=== PATIENT | male | born 1950 | race Caucasian/White ===

== ENCOUNTER 2025-04-22 07:41 | Inpatient (IN) ==
[2025-04-22] MEDS: ONDANSETRON INJ 2 MG/ML 2 ML VIAL IV STA (07:57)
[2025-04-22] MEDS: SODIUM CHLORIDE 0.9% 1,000 ML IV ONE ×2 (07:57→10:23)
[2025-04-22 08:06] LABS: Hematocrit (blood only) 36.6 % (42.0-52.0); Hemoglobin 12.7 g/dl (14.0-18.0); Immature Granulocytes # (auto) 0.03 K/uL (0.01-0.20); Immature Granulocytes % (auto) 0.7 %; Mean Corpuscular Hemoglobin 31.3 pg (25.0-34.0); Mean Corpuscular Volume 90.1 fL (80.0-100.0); Platelet Count 183 K/uL (130-400); RDW Standard Deviation 42.5 fL (36.4-46.3); Red Blood Count 4.06 M/uL (4.70-6.10); White Blood Count 4.40 K/ul (4.8-10.8)
--- NOTE | 2025-04-22 08:11 | Emergency Department Note ---
Impression & Plan Recurrent severe hypoglycemia, MARI (acute kidney injury), Nausea & vomiting, Hyperphosphatemia, Transaminitis, Elevated troponin, Rhabdomyolysis, Elevated CK, Acidosis, Elevated lipase, Acute dehydration ED Provider Note HISTORY OF PRESENT ILLNESS: Patient is a 74-year-old male presenting with hypoglycemia, nausea and abdominal pain. Patient's had called 911 this morning because the patient seemed very confused and was not acting his normal self. On EMS arrival, the patient's blood sugar was found to be 37 mg/dL. He was given D10 and route to the hospital and repeat blood sugar was 137 mg/dL. Patient reports for the last week he has been feeling generally unwell. He states that he has had some cramping throughout his abdomen. He states that he has had multiple episodes of vomiting throughout the week and that he had a few episodes of diarrhea a few days ago. He states that he has not had a fever. Reports feeling nauseous and that "I have not eaten very well because anything to eat or drink tastes weird." He states that "water tastes like mud." He takes metformin twice daily and states he took a dose last night. He denies any chest pain or shortness of breath. Denies any recent sick contact exposures. Denies any dysuria or hematuria. He reports feeling generally unwell on arrival to the emergency department. ROS: as above PHYSICAL EXAM: Constitutional: Patient appears in no acute distress. HENT: Head: Normocephalic and atraumatic. Eyes: EOMI, PERRL Mouth/Throat: Mucous membranes dry. Neck: Trachea midline. Neck supple. Cardiovascular: RRR, No murmurs, rubs or gallops. Intact distal pulses. Pulmonary/Chest: No respiratory distress. Breath sounds clear and equal bilaterally. No wheezes or rales. Abdominal: Abdomen soft, no tenderness, rebound or guarding. Musculoskeletal: No edema, tenderness or deformity noted. Skin: Warm and dry. No rash, erythema, pallor or cyanosis Psychiatric: Appropriate mood and affect for situation. Neurological: Alert and keenly responsive. CN II-XII grossly intact, moving all extremities equally and fully. MDM: - Vitals signs showed hypertension. Fingerstick glucose on arrival was 125 mg/dL. - History obtained via patient. History as above. - Chronic conditions affecting care: HLD; DM-2; CAD; AAA (s/p repair) - Differential diagnoses include, but are not limited to: Acute dehydration; electrolyte abnormality; viral syndrome; bowel obstruction; abnormal medication administration; ACS; pneumonia - Order placed for continuous cardiac monitoring. At this time, monitor showed rate of 96 bpm with normal sinus rhythm, per my interpretation. - External medical records reviewed. Primary care visit note dated 12/14/2024 was reviewed. Patient was seen for 6-month follow-up visit for his chronic medical problems. Per their documentation, he has been taking metformin 1000 mg daily when it is actually written for twice daily. He stopped his glimepiride in October 2024. - EKG image interpreted by myself showed normal sinus rhythm. Rate 70 bpm. QT 408. No acute ischemic changes. - Laboratory workup interpreted by myself showed slight leukopenia (WBC 4.40); anemia (Hgb 12.7); normal PT/INR; normal lactate; normal potassium; MARI (Cr 8.68); hypocalcemia (Ca 7.9); hyperphosphatemia (phos 5.7); transaminitis (AST 272; ALT 423); elevated CK (4909); elevated troponin (26.1); elevated lipase (108) - UA negative for infection - COVID/flu/RSV negative - CT head wo contrast negative for acute pathology - CT abdomen/pelvis wo contrast negative for acute pathology. - Patient given 4 mg IV zofran and 1L NS in ER initially. - VBG shows evidence of acidosis (pH 7.28) - Patient noted to have a significant kidney injury on laboratory workup. He was given a total of 2 L normal saline. Patient did void spontaneously in the emergency department. He was bladder scanned for about 700 cc of urine and his postvoid residual is 0. He does not have profound electrolyte abnormalities to suggest need for CRRT at this time. Patient does have a notable acidosis with a pH of 7.28. However, do feel that this could be repeated by the hospitalist service after patient has been adequately fluid resuscitated in order to monitor for improvement. - Patient had initial glucose of 37 on EMS arrival and his blood sugar did improved after D10 dosing. However, while in the emergency department his glucose did slowly trend down from 125 down to the 60s. Patient has not taken any antihyperglycemic's today. D10 was ordered. - Discussion was had with upper caser about patient's case and need for admission - Hospitalist consulted for admission - Patient admitted to [facility] service for further evaluation and management. I have personally spent 46 minutes of critical care time in the direct management of this patient. This includes bedside care, interpretation of diagnostic studies, and testing, discussion with consultants, patient, and family members, and other required patient management activities. This 46 minutes is in excess of all separately billable procedures. ASSESSMENT AND PLAN: Diagnosis: MARI; nausea and vomiting; recurrent hypoglycemia; hyperphosphatemia; elevated troponin; transaminitis; rhabdomyolysis; elevated CK; acidosis; elevated lipase; acute dehydration Plan: Admit Past Med/Surg History Problem List (Updated 04/22/25 @ 10:51 by Seda Dawkins MD) Acute dehydration (Acute) Elevated lipase (Acute) Acidosis (Acute) Elevated CK (Acute) Rhabdomyolysis (Acute) Elevated troponin (Acute) Transaminitis (Acute) Hyperphosphatemia (Acute) Nausea & vomiting (Acute) MARI (acute kidney injury) (Acute) Recurrent severe hypoglycemia (Acute) Type II diabetes mellitus Abdominal aortic aneurysm Coronary artery disease (Chronic) Dyslipidemia (Acute) Past myocardial infarction (Acute) Surgical History History of cardiac cath Family History Father Coronary heart disease Family/Other Coronary heart disease Diabetes Brother Myocardial infarction Sister Myocardial infarction Denies family history of Colon cancer Ovarian cancer Prostate cancer Breast cancer Social History (Updated 06/18/24 @ 08:53 by NATHEN Cifuentes) Smoking Status: Former smoker Tobacco Type: Cigarettes Age Started Using Tobacco: 16; Age Quit Using Tobacco: 45; packs per day: 1; Cigarettes Per Day: 20; Second Hand Exposure: No; Do You Dip or Chew Tobacco: No; Hx Alcohol Use: No Hx Substance Use: No marital status: Current Living Situation: Spouse current occupational status: employed 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 Feels Safe at Home: Yes Childhood Exposure to Second-Hand Smoke: Yes Diet: low salt caffeine: Yes Dental Care, Regularly: No Physical Activity Frequency: Does not Exercise Seatbelt Use: always Allergies Allergies Allergy/AdvReac Type Severity Reaction Status Date / Time amoxicillin Allergy Unknown UNKNOWN Verified 01/26/25 09:30 clavulanic acid Allergy Unknown UNKNOWN Verified 01/26/25 09:30 Home Meds Home Medications Medication Instructions Recorded Confirmed aspirin 81 mg tablet 81 mg PO DAILY 04/06/19 04/22/25 Previous Rx's Medication Instructions Recorded ezetimibe 10 mg tablet (Zetia) 10 mg PO DAILY #90 tabs 06/20/24 blood sugar diagnostic (OneTouch #100 ea 06/23/24 Ultra Test strips) blood-glucose meter (OneTouch #100 ea 06/23/24 Ultra2 Meter) lancets 30 gauge (OneTouch #100 ea 06/23/24 UltraSoft 2 Lancet) nitroglycerin 0.4 mg sublingual 0.4 mg sublingual Q5M PRN chest 01/28/25 tablet pain #25 tabs rosuvastatin 40 mg tablet 40 mg PO DAILY #100 tabs 02/05/25 lisinopril 10 mg tablet 10 mg PO DAILY #100 tabs 02/15/25 metformin 500 mg tablet 1,000 mg (2 x 500 mg) PO BID #360 03/12/25 tabs metoprolol tartrate 25 mg tablet 25 mg PO BID #180 tabs 04/22/25 Results & Data (ED) Vital Signs Vital Signs - 24 hr 04/22/25 07:49 04/22/25 08:08 04/22/25 08:09 Temperature 36.5 C Temperature Source Oral Pulse Rate 75 71 72 Pulse Rate [Left Finger] Pulse Rhythm Regular Pulse Rhythm [Left Finger] Pulse Strength [Left Finger] Respiratory Rate 20 20 Respiratory Effort / Characteristics Non-Labored Respiratory Depth Normal Respiratory Pattern Regular Blood Pressure 158/85 H Blood Pressure [Right Arm] Blood Pressure Mean 109 Blood Pressure Mean [Right Arm] Blood Pressure Position Lying Blood Pressure Position [Right Arm] Pulse Oximetry 96 95 Oxygen Delivery Method Room Air Room Air Sepsis Recent Fever Within 48 Hours No Sepsis New/Unexplained Change in Mental Status Yes Sepsis Action Taken by Nursing No Action Required 04/22/25 09:51 Temperature Temperature Source Pulse Rate Pulse Rate [Left Finger] 96 H Pulse Rhythm Pulse Rhythm [Left Finger] Regular Pulse Strength [Left Finger] Normal Respiratory Rate 20 Respiratory Effort / Characteristics Non-Labored Spontaneous Respiratory Depth Normal Respiratory Pattern Regular Blood Pressure Blood Pressure [Right Arm] 134/71 Blood Pressure Mean Blood Pressure Mean [Right Arm] 92 Blood Pressure Position Blood Pressure Position [Right Arm] Sitting Pulse Oximetry 96 Oxygen Delivery Method Room Air Sepsis Recent Fever Within 48 Hours Sepsis New/Unexplained Change in Mental Status Sepsis Action Taken by Nursing Laboratory Data 04/22/25 07:54 04/22/25 07:54 Lab Results 04/22/25 04/22/25 04/22/25 Range/Units 07:45 07:54 08:00 WBC 4.40 L (4.8-10.8) K/ul RBC 4.06 L (4.70-6.10) M/uL Hgb 12.7 L (14.0-18.0) g/dl Hct 36.6 L (42.0-52.0) % MCV 90.1 (80.0-100.0) fL MCH 31.3 (25.0-34.0) pg MCHC 34.7 (32.0-36.0) g/dL RDW Std Deviation 42.5 (36.4-46.3) fL RDW Coeff of Ronny 12.7 (11.5-14.5) % Plt Count 183 (130-400) K/uL MPV 9.7 (9.4-12.4) fL Immature Gran % (Auto) 0.7 % Neut % (Auto) 73.4 % Lymph % (Auto) 11.1 % Washburn % (Auto) 13.6 % Eos % (Auto) 0.7 % Baso % (Auto) 0.5 % Neut # (Auto) 3.23 (1.40-6.50) K/uL Lymph # (Auto) 0.49 L (1.20-3.40) K/uL [place] # (Auto) 0.60 H (0.11-0.59) K/uL Eos # (Auto) 0.03 (0.00-0.50) K/uL Baso # (Auto) 0.02 (0.00-0.20) K/uL Immature Gran # (Auto) 0.03 (0.01-0.20) K/uL PT Cancelled INR Cancelled VBG pH (7.36-7.41) VBG pCO2 (38-50) mmHg VBG pO2 mmHg VBG HCO3 mmol/L VBG O2 Saturation % VBG Base Excess mEq/L Sodium 140 (136-145) mmol/L Potassium 4.4 (3.5-5.1) mmol/L Chloride 110 H (98-107) mmol/L Carbon Dioxide 21 (21-32) mmol/L Anion Gap 9 (3-11) BUN 81 H (6-23) mg/dl Creatinine 8.68 H* (0.6-1.4) mg/dl Est Cr Clr Drug Dosing 7.5 ml/min eGFR 5.91 BUN/Creatinine Ratio 9.3 L (10-20) Glucose 132 H (70-99(Fasting)) mg/dl POC Glucose 125 H (70-99) mg/dl Lactate (0.4-2.0) mmol/L Calcium 7.9 L (8.6-10.3) mg/dl Phosphorus (2.5-4.9) mg/dl Magnesium 2.4 (1.7-2.4) mg/dl Total Bilirubin 0.4 (0.2-1.0) mg/dl AST 272 H (13-39) U/L ALT 423 H (7-52) U/L Alkaline Phosphatase 72 (34-104) U/L Total Creatine Kinase 4909 H (30-223) U/L Troponin I High Sens 26.1 H (0-20) pg/ml Total Protein 6.0 (6.0-8.3) gm/dl Albumin 3.2 L (3.4-5.0) gm/dl Globulin 2.8 (2.5-4.0) gm/dl Albumin/Globulin Ratio 1.1 (0.9-2) Lipase 108 H (11-82) U/L Urine Color Urine Appearance (Clear) Urine pH (4.5-7.5) Ur Specific Newton (1.000-1.030) Urine Protein (Negative) Urine Glucose (UA) (Negative) Urine Ketones (Negative) Urine Blood (Negative) Urine Nitrite (Negative) Urine Bilirubin (Negative) Urine Urobilinogen (Negative) Ur Leukocyte Esterase (Negative) Urine WBC (Auto) (0-5) /hpf Urine RBC (Auto) (0-2) /hpf U Hyaline Cast (Auto) (0-2) /lpf U Epithel Cells (Auto) (0-2) /hpf Urine Bacteria (Auto) (None Seen) Urine Comment SARS-CoV-2 (PCR) NEGATIVE (Negative) Influenza Type A (PCR) Negative (Neg) Influenza Type B (PCR) Negative (Neg) RSV (RT-PCR) Negative (Neg) 04/22/25 04/22/25 04/22/25 Range/Units 08:10 08:50 08:55 WBC (4.8-10.8) K/ul RBC (4.70-6.10) M/uL Hgb (14.0-18.0) g/dl Hct (42.0-52.0) % MCV (80.0-100.0) fL MCH (25.0-34.0) pg MCHC (32.0-36.0) g/dL RDW Std Deviation (36.4-46.3) fL RDW Coeff of Ronny (11.5-14.5) % Plt Count (130-400) K/uL MPV (9.4-12.4) fL Immature Gran % (Auto) % Neut % (Auto) % Lymph % (Auto) % [place] % (Auto) % Eos % (Auto) % Baso % (Auto) % Neut # (Auto) (1.40-6.50) K/uL Lymph # (Auto) (1.20-3.40) K/uL [place] # (Auto) (0.11-0.59) K/uL Eos # (Auto) (0.00-0.50) K/uL Baso # (Auto) (0.00-0.20) K/uL Immature Gran # (Auto) (0.01-0.20) K/uL PT 11.4 INR 1.1 VBG pH (7.36-7.41) VBG pCO2 (38-50) mmHg VBG pO2 mmHg VBG HCO3 mmol/L VBG O2 Saturation % VBG Base Excess mEq/L Sodium (136-145) mmol/L Potassium (3.5-5.1) mmol/L Chloride (98-107) mmol/L Carbon Dioxide (21-32) mmol/L Anion Gap (3-11) BUN (6-23) mg/dl Creatinine (0.6-1.4) mg/dl Est Cr Clr Drug Dosing ml/min eGFR BUN/Creatinine Ratio (10-20) Glucose (70-99(Fasting)) mg/dl POC Glucose 99 (70-99) mg/dl Lactate 1.1 (0.4-2.0) mmol/L Calcium (8.6-10.3) mg/dl Phosphorus 5.7 H (2.5-4.9) mg/dl Magnesium (1.7-2.4) mg/dl Total Bilirubin (0.2-1.0) mg/dl AST (13-39) U/L ALT (7-52) U/L Alkaline Phosphatase (34-104) U/L Total Creatine Kinase (30-223) U/L Troponin I High Sens 23.2 H (0-20) pg/ml Total Protein (6.0-8.3) gm/dl Albumin (3.4-5.0) gm/dl Globulin (2.5-4.0) gm/dl Albumin/Globulin Ratio (0.9-2) Lipase (11-82) U/L Urine Color Urine Appearance (Clear) Urine pH (4.5-7.5) Ur Specific Newton (1.000-1.030) Urine Protein (Negative) Urine Glucose (UA) (Negative) Urine Ketones (Negative) Urine Blood (Negative) Urine Nitrite (Negative) Urine Bilirubin (Negative) Urine Urobilinogen (Negative) Ur Leukocyte Esterase (Negative) Urine WBC (Auto) (0-5) /hpf Urine RBC (Auto) (0-2) /hpf U Hyaline Cast (Auto) (0-2) /lpf U Epithel Cells (Auto) (0-2) /hpf Urine Bacteria (Auto) (None Seen) Urine Comment SARS-CoV-2 (PCR) (Negative) Influenza Type A (PCR) (Neg) Influenza Type B (PCR) (Neg) RSV (RT-PCR) (Neg) 04/22/25 04/22/25 04/22/25 Range/Units 09:53 09:58 10:04 WBC (4.8-10.8) K/ul RBC (4.70-6.10) M/uL Hgb (14.0-18.0) g/dl Hct (42.0-52.0) % MCV (80.0-100.0) fL MCH (25.0-34.0) pg MCHC (32.0-36.0) g/dL RDW Std Deviation (36.4-46.3) fL RDW Coeff of Ronny (11.5-14.5) % Plt Count (130-400) K/uL MPV (9.4-12.4) fL Immature Gran % (Auto) % Neut % (Auto) % Lymph % (Auto) % [place] % (Auto) % Eos % (Auto) % Baso % (Auto) % Neut # (Auto) (1.40-6.50) K/uL Lymph # (Auto) (1.20-3.40) K/uL [place] # (Auto) (0.11-0.59) K/uL Eos # (Auto) (0.00-0.50) K/uL Baso # (Auto) (0.00-0.20) K/uL Immature Gran # (Auto) (0.01-0.20) K/uL PT INR VBG pH 7.28 L (7.36-7.41) VBG pCO2 42 (38-50) mmHg VBG pO2 40 mmHg VBG HCO3 20 mmol/L VBG O2 Saturation 70.0 % VBG Base Excess -6.7 mEq/L Sodium (136-145) mmol/L Potassium (3.5-5.1) mmol/L Chloride (98-107) mmol/L Carbon Dioxide (21-32) mmol/L Anion Gap (3-11) BUN (6-23) mg/dl Creatinine (0.6-1.4) mg/dl Est Cr Clr Drug Dosing ml/min eGFR BUN/Creatinine Ratio (10-20) Glucose (70-99(Fasting)) mg/dl POC Glucose 66 L* (70-99) mg/dl Lactate 1.1 (0.4-2.0) mmol/L Calcium (8.6-10.3) mg/dl Phosphorus (2.5-4.9) mg/dl Magnesium (1.7-2.4) mg/dl Total Bilirubin (0.2-1.0) mg/dl AST (13-39) U/L ALT (7-52) U/L Alkaline Phosphatase (34-104) U/L Total Creatine Kinase (30-223) U/L Troponin I High Sens (0-20) pg/ml Total Protein (6.0-8.3) gm/dl Albumin (3.4-5.0) gm/dl Globulin (2.5-4.0) gm/dl Albumin/Globulin Ratio (0.9-2) Lipase (11-82) U/L Urine Color Yellow Urine Appearance Clear (Clear) Urine pH 5.5 (4.5-7.5) Ur Specific Newton 1.008 (1.000-1.030) Urine Protein 1+ H (Negative) Urine Glucose (UA) Negative (Negative) Urine Ketones Negative (Negative) Urine Blood 3+ H (Negative) Urine Nitrite Negative (Negative) Urine Bilirubin Negative (Negative) Urine Urobilinogen Negative (Negative) Ur Leukocyte Esterase Negative (Negative) Urine WBC (Auto) 0-5 (0-5) /hpf Urine RBC (Auto) 0-2 (0-2) /hpf U Hyaline Cast (Auto) 3-5 H (0-2) /lpf U Epithel Cells (Auto) 0-2 (0-2) /hpf Urine Bacteria (Auto) None Seen (None Seen) Urine Comment SARS-CoV-2 (PCR) (Negative) Influenza Type A (PCR) (Neg) Influenza Type B (PCR) (Neg) RSV (RT-PCR) (Neg) Administered Medications Dextrose (D10w) 1,000 mls @ 75 mls/hr IV .[id number] Stop: 04/25/25 09:59 Last Admin: 04/22/25 10:23 Dose: 75 mls/hr Documented By: lawrence Discontinued Medications Sodium Chloride (Nss) 1,000 mls @ 999 mls/hr IV .Q1H1M ONE Stop: 04/22/25 08:53 Last Admin: 04/22/25 07:57 Dose: 999 mls/hr Documented By: OLEGARIO Sodium Chloride (Nss) 1,000 mls @ 999 mls/hr IV .Q1H1M ONE Stop: 04/22/25 09:46 Last Admin: 04/22/25 10:23 Dose: 999 mls/hr Documented By: lawrence Ondansetron HCl (Ondansetron Inj 2 Mg/Ml 2 Ml Vial) 4 mg IV NOW STA Stop: 04/22/25 07:54 Last Admin: 04/22/25 07:57 Dose: 4 mg Documented By: OLEGARIO Imaging Data Radiologist's Impression: Head CT 04/22/25 08:16 CT SCAN OF THE BRAIN WITHOUT IV CONTRAST CLINICAL HISTORY: Altered mental status. COMPARISON STUDY: None. TECHNIQUE: Unenhanced axial CT scan of the brain was performed from the vertex to the skull base. A dose lowering technique was utilized adhering to the principles of ALARA. CT DOSE: 1977.58 mGy.cm FINDINGS: Brain parenchyma: No acute intracranial hemorrhage, midline shift or mass effect is present. Friedman-white matter differentiation is preserved. There are no extra- axial fluid collections. There are no findings to suggest acute dural sinus thrombosis or acute territorial infarct. Ventricles, sulci, cisterns: There is no hydrocephalus. The basal cisterns are patent. Calvarium: There are no calvarial fractures. Sinuses and mastoids: Polypoid mucosal thickening of the bilateral maxillary and ethmoid sinuses is partially imaged on this exam. Orbits: The bony orbits are grossly intact. IMPRESSION: 1. No acute intracranial findings. 2. Polypoid mucosal thickening of the bilateral ethmoid and maxillary sinuses. ACT 112: Negative or not required by law. Electronically signed by: Sriram Reich M.D. 04/22/2025 10:00 AM Abdomen/Pelvis CT 04/22/25 08:46 CT OF THE ABDOMEN AND PELVIS WITHOUT CONTRAST CLINICAL HISTORY: Nausea, vomiting and diarrhea; abdominal pain; acute renal failure. COMPARISON STUDY: CTA of the abdomen pelvis March 13, 2021. TECHNIQUE: Axial images of the abdomen and pelvis were obtained without IV contrast. Images were reviewed in the axial, sagittal, and coronal planes. Automated exposure control was utilized for the study. A dose lowering technique was utilized adhering to the principles of ALARA. FINDINGS: Two calcified left lower lobe pulmonary nodules are unchanged. These are benign. There is no pneumatosis, free air or portal venous gas. No renal, ureteral or bladder calculi are present. There is no hydronephrosis. There is mild symmetric bilateral perinephric stranding. Low-attenuation bilateral renal lesions are suboptimally assessed on this exam favor cysts. Interval repair of an abdominal aortic aneurysm is noted. There is a gallstone within the gallbladder without evidence for acute cholecystitis. Evaluation of the solid abdominal viscera is suboptimal on this unenhanced examination. Liver, spleen, adrenal glands and pancreas are unremarkable. There is no biliary or pancreatic ductal dilatation. There is no lymphadenopathy. There are no fluid collections. No evidence for a bowel obstruction. As before, appendix is within the right inguinal hernia. There is colonic diverticulosis. No evidence for acute diverticulitis. IMPRESSION: 1. No urinary calculi or hydronephrosis. Nonspecific symmetric bilateral perinephric stranding. 2. No acute process within the abdomen or pelvis on unenhanced exam. 3. Colonic diverticulosis. No evidence for acute diverticulitis. 4. Interval abdominal aortic aneurysm repair. ACT 112: Negative or not required by law. Electronically signed by: Sriram Reich M.D. 04/22/2025 10:06 AM Discharge Plan Visit Data Chief Complaint: Hypoglycemia ED Provider: Seda Dawkins Discharge Problem: Recurrent severe hypoglycemia, MARI (acute kidney injury), Nausea & vomiting, Hyperphosphatemia, Transaminitis, Elevated troponin, Rhabdomyolysis, Elevated CK, Acidosis, Elevated lipase, Acute dehydration Condition: Serious Forms Stand Alone Forms: My [facility] Prescriptions Prescriptions: No Action ezetimibe [Zetia] 10 mg tablet 10 mg PO DAILY Qty: 90 3RF (DME) OneTouch Ultra Test Strip See Rx Instructions .Route Qty: 100 3RF Rx Instructions: As directed to test daily (DME) blood-glucose meter [[facility] Ultra2 Meter] [facility] See Rx Instructions .Route Qty: 100 3RF Rx Instructions: As directed to test daily (DME) lancets [OneTouch UltraSoft 2 Lancet] 30 gauge misc See Rx Instructions .Route Qty: 100 0RF Rx Instructions: As directed to test daily rosuvastatin 40 mg tablet 40 mg PO DAILY Qty: 100 3RF lisinopril 10 mg tablet 10 mg PO DAILY Qty: 100 3RF metformin 500 mg tablet 1,000 mg PO BID Qty: 360 3RF metoprolol tartrate 25 mg tablet 25 mg PO BID Qty: 180 3RF aspirin 81 mg tablet 81 mg PO DAILY Patient Comments: Unable to verify OTC meds at this date/time. - 04/22/25 nitroglycerin 0.4 mg tablet, sublingual 0.4 mg SL Q5M PRN (Reason: chest pain) Qty: 25 0RF Referrals Referrals: Cinthya Crawford CRNP [Primary Care Provider] -
[2025-04-22 08:33] LABS: Alanine Aminotransferase 423.0 U/L (7-52); Albumin Globulin Ratio 1.1 (0.9-2); Alkaline Phosphatase 72.0 U/L (34-104); Anion Gap 9.0 (3-11); Bilirubin,Total 0.4 mg/dl (0.2-1.0); Blood Urea Nitrogen 81.0 mg/dl (6-23); Calcium 7.9 mg/dl (8.6-10.3); Carbon Dioxide 21.0 mmol/L (21-32); Chloride 110.0 mmol/L (98-107); Creatinine Clr Calc Pharmacy 7.5 ml/min; Globulin 2.8 gm/dl (2.5-4.0); Glucose 132.0 mg/dl (70-99(Fasting)); Lipase 108.0 U/L (11-82); Potassium 4.4 mmol/L (3.5-5.1); Sodium 140.0 mmol/L (136-145); Total Protein 6.0 gm/dl (6.0-8.3)
[2025-04-22 08:52] LABS: Influenza A virus by PCR Negative (Neg); Influenza B virus by PCR Negative (Neg); SARS CoV2 RNA(COVID-19) Ceph NEGATIVE (Negative)
[2025-04-22 08:59] LABS: Creatine Kinase 4909.0 U/L (30-223); Magnesium 2.4 mg/dl (1.7-2.4)
[2025-04-22 09:48] LABS: INR 1.1 (0.9-1.1); Prothrombin Time 11.4 Seconds (9.0-12.0)
--- NOTE | 2025-04-22 10:01 | CT Scan Report ---
CT SCAN OF THE BRAIN WITHOUT IV CONTRAST CLINICAL HISTORY: Altered mental status. COMPARISON STUDY: None. TECHNIQUE: Unenhanced axial CT scan of the brain was performed from the vertex to the skull base. A dose lowering technique was utilized adhering to the principles of ALARA. CT DOSE: 1977.58 mGy.cm FINDINGS: Brain parenchyma: No acute intracranial hemorrhage, midline shift or mass effect is present. Friedman-whi te matter differentiation is preserved. There are no extra-axial fluid collections. There are no find ings to suggest acute dural sinus thrombosis or acute territorial infarct. Ventricles, sulci, cisterns: There is no hydrocephalus. The basal cisterns are patent. Calvarium: There are no calvarial fractures. Sinuses and mastoids: Polypoid mucosal thickening of the bilateral maxillary and ethmoid sinuses is p artially imaged on this exam. Orbits: The bony orbits are grossly intact. IMPRESSION: 1. No acute intracranial findings. 2. Polypoid mucosal thickening of the bilateral ethmoid and maxillary sinuses. ACT 112: Negative or not required by law. Electronically signed by: Sriram Reich M.D. 04/22/2025 10:00 AM
--- NOTE | 2025-04-22 10:07 | CT Scan Report ---
CT OF THE ABDOMEN AND PELVIS WITHOUT CONTRAST CLINICAL HISTORY: Nausea, vomiting and diarrhea; abdominal pain; acute renal failure. COMPARISON STUDY: CTA of the abdomen pelvis March 13, 2021. TECHNIQUE: Axial images of the abdomen and pelvis were obtained without IV contrast. Images were revi ewed in the axial, sagittal, and coronal planes. Automated exposure control was utilized for the franchesca dy. A dose lowering technique was utilized adhering to the principles of ALARA. FINDINGS: Two calcified left lower lobe pulmonary nodules are unchanged. These are benign. There is n o pneumatosis, free air or portal venous gas. No renal, ureteral or bladder calculi are present. Ther e is no hydronephrosis. There is mild symmetric bilateral perinephric stranding. Low-attenuation bila teral renal lesions are suboptimally assessed on this exam favor cysts. Interval repair of an abdomin al aortic aneurysm is noted. There is a gallstone within the gallbladder without evidence for acute c holecystitis. Evaluation of the solid abdominal viscera is suboptimal on this unenhanced examination. Liver, spleen, adrenal glands and pancreas are unremarkable. There is no biliary or pancreatic ducta l dilatation. There is no lymphadenopathy. There are no fluid collections. No evidence for a bowel ob struction. As before, appendix is within the right inguinal hernia. There is colonic diverticulosis. No evidence for acute diverticulitis. IMPRESSION: 1. No urinary calculi or hydronephrosis. Nonspecific symmetric bilateral perinephric stranding. 2. No acute process within the abdomen or pelvis on unenhanced exam. 3. Colonic diverticulosis. No evidence for acute diverticulitis. 4. Interval abdominal aortic aneurysm repair. ACT 112: Negative or not required by law. Electronically signed by: Sriram Reich M.D. 04/22/2025 10:06 AM
[2025-04-22 10:14] LABS: Base Excess VBG -6.7 mEq/L; HCO3 VBG 20 mmol/L; Oxygen Saturation VBG 70.0 %; PCO2 VBG 42 mmHg (38-50); PO2 VBG 40 mmHg; pH VBG 7.28 (7.36-7.41)
[2025-04-22] MEDS: DEXTROSE 10% 1,000 ML IV SCH (10:23)
--- NOTE | 2025-04-22 10:24 | History & Physical Report ---
Date of Service April 22, 2025 Assessment & Plan (1) MARI (acute kidney injury): (2) Rhabdomyolysis: (3) Elevated troponin: (4) Hypoglycemia: Plan This patient is a 74-year-old male with a history of CAD s/p MACKENZIE, AAA s/p repair, PAD, HTN, DM 2, mild aortic stenosis, HLD, and CKD stage III, who presents to the ED with worsening confusion and low blood sugar after having 6 days of myalgias, sore throat, loss of taste and smell, and night sweats. He became hypoglycemic with a blood sugar of 37 at home by EMS and in the ED, he was found to have a creatinine elevated at 8.68, acidosis with VBG pH of 7.28, with normal lactate and no anion gap, normal serum bicarbonate, elevated AST and ALT and found to have a elevated CK of 4909. His COVID/flu/RSV test was negative, however respiratory biofire was positive for parainfluenza virus. Strep PCR negative. He is admitted for hypoglycemia, and acute kidney injury secondary to parainfluenza induced rhabdomyolysis. #Parainfluenza/rhabdomyolysis-patient presents with sore throat, severe diffuse myalgias, sweats but no documented fevers, and with rhabdomyolysis. Will influenza induced rhabdomyolysis is more common, there rarely can be parainfluenza induced rhabdomyolysis. He is on a statin drug but has been on it for years and I do not think this is the cause. He did not have a strenuous workout more than his usual amount of activity and there were no other new supplements or medications that he has been taking. CK elevated at 4909 on admission and AST and ALT elevated as well secondary to rhabdomyolysis. With acute kidney injury resulting. UA with 3+ blood and 0 RBCs consistent with myoglobinuria - Admit to medical floor with telemetry for arrhythmia monitoring - Isolation precautions for parainfluenza - Supportive care, Tylenol as needed for headache, sore throat, pain, or fever - Check blood cultures - Continue IV fluids with normal saline at 125 mL/h and monitor for volume overload given history of cardiac issues although has normal EF - Trend serial CK, CMP - Hold home statin and Zetia - Loose stools and nausea could be from renal failure or parainfluenza but will check stool cultures/C. difficile as well #Acute kidney injury on CKD stage III/nonanion gap metabolic acidosis-creatinine 8.6 on admission with BUN 81 with none anion gap metabolic acidosis normal lactate. pH is low at 7.27 which corrected for venous approximately 7.29 with n ormal CO2 likely secondary to acute kidney injury. MARI also secondary to rhabdomyolysis. UA with myoglobinuria and 1+ protein but otherwise bland, no evidence of infection. Fortunately, he is making urine and does not have any hyperkalemia or volume overload. Discussed care with nephrology at the bedside at the time of admission-no bicarbonate infusion necessary at this time - Continue IV fluids for rhabdomyolysis - Serial BMP - Appreciate nephrology consultation - Monitor strict intake and output - Hold home lisinopril, metformin, glimepiride #Hypoglycemia/DM 2-with severe hypoglycemia blood sugar of 37 at the time of EMS arrival at his home improved with dextrose but now dropping back down again in the ED to in the 40s. Suspect glimepiride is the cause in the setting of acute kidney injury. Typically he takes metformin and glimepiride for his diabetes and is well-controlled with an HgbA1c of 7.7% - Since start D10W drip and continue to follow hypoglycemia protocol-once blood sugars improve and renal function improves, will stop dextrose drip - Check blood sugars every 4 hours - Will order loose NovoLog sliding scale in case develops hyperglycemia as renal function improves - Check HgbA1c in the a.m. - Diabetic diet #CAD s/p MACKENZIE/AAA s/p repair/PAD/HTN/mild aortic stenosis/HLD/elevated troponin- minimally elevated troponin in the 20s and repeat stable likely secondary to acute kidney injury. He has no chest pain, no ECG ischemic changes. He follows with [facility] cardiology and has no acute issues at this time - Continue home aspirin, metoprolol - Holding home lisinopril, rosuvastatin, Zetia for MARI and rhabdomyolysis DVT prophylaxis-heparin SQ only-defer SCDs due to rhabdomyolysis of the legs Disposition-admit to medical floor with telemetry History of Present Illness Chief Complaint: Confusion, low blood sugar Primary Care Provider: HAYDEE Pryor This patient is a 74-year-old male with a history of CAD s/p MACKENZIE, AAA s/p repair, PAD, HTN, DM 2, mild aortic stenosis, HLD, and CKD stage III, who presents to the ED with worsening confusion and low blood sugar. Reports about 6 days ago, he started having significant muscle cramps that started in his legs and worked their way up his lower extremities into his back and posterior shoulders. 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 He had a sore throat, loss of taste and smell and says "everything tastes like mud." He denies fevers but woke up a few nights drenched in sweats. He denies cough or shortness of breath or chest pains. His muscle pains continued despite use of topical muscle pain creams. He had some occasional nausea with dry heaves and 2 loose stools and some abdominal cramping. He continued to take all of his usual home medications. On the morning of admission he was confused and his called [id number] noted that his blood sugar was low at 37 and gave him dextrose. By the time of arrival in the ED, his blood sugar was improved to the low 100s and he was found to have a creatinine elevated at 8.68, acidosis with VBG pH of 7.28, with normal lactate and no anion gap, normal serum bicarbonate, elevated AST and ALT and found to have a elevated CK of 4909. His COVID/flu/RSV test was negative, however I ordered a respiratory biofire which was positive for parainfluenza virus. He will be admitted for hypoglycemia, and acute kidney injury secondary to para influenza induced rhabdomyolysis. Allergies Allergy/AdvReac Type Severity Reaction Status Date / Time amoxicillin Allergy Unknown UNKNOWN Verified 01/26/25 09:30 clavulanic acid Allergy Unknown UNKNOWN Verified 01/26/25 09:30 Home Medications Medication Instructions Recorded Confirmed Type aspirin 81 mg tablet 81 mg PO DAILY 04/06/19 04/22/25 History ezetimibe 10 mg tablet (Zetia) 10 mg PO DAILY #90 tabs 06/20/24 04/22/25 Rx blood sugar diagnostic ([employer] #100 ea 06/23/24 01/26/25 Rx Ultra Test strips) blood-glucose meter ([employer] #100 ea 06/23/24 01/26/25 Rx Ultra2 Meter) lancets 30 gauge (OneTouch #100 ea 06/23/24 01/26/25 Rx UltraSoft 2 Lancet) nitroglycerin 0.4 mg sublingual 0.4 mg sublingual Q5M PRN chest 01/28/25 04/22/25 Rx tablet pain #25 tabs rosuvastatin 40 mg tablet 40 mg PO DAILY #100 tabs 02/05/25 04/22/25 Rx lisinopril 10 mg tablet 10 mg PO DAILY #100 tabs 02/15/25 04/22/25 Rx metformin 500 mg tablet 1,000 mg (2 x 500 mg) PO BID #360 03/12/25 04/22/25 Rx tabs metoprolol tartrate 25 mg tablet 25 mg PO BID #180 tabs 04/22/25 04/22/25 Rx Past Med/Surg History Problem List Aortic stenosis HTN (hypertension), benign PAD (peripheral artery disease) Hypoglycemia Chronic kidney disease Acute dehydration (Acute) Elevated lipase (Acute) Acidosis (Acute) Elevated CK (Acute) Rhabdomyolysis (Acute) Elevated troponin (Acute) Transaminitis (Acute) Hyperphosphatemia (Acute) Nausea & vomiting (Acute) MARI (acute kidney injury) (Acute) Recurrent severe hypoglycemia (Acute) Type II diabetes mellitus Abdominal aortic aneurysm Coronary artery disease (Chronic) Dyslipidemia (Acute) Past myocardial infarction (Acute) Surgical History S/P AAA (abdominal aortic aneurysm) repair History of cardiac cath Family History Father Coronary heart disease Family/Other Coronary heart disease Diabetes Brother Myocardial infarction Sister Myocardial infarction Denies family history of Colon cancer Ovarian cancer Prostate cancer Breast cancer Social History Smoking Status: Former smoker Tobacco Type: Cigarettes Age Started Using Tobacco: 16; Age Quit Using Tobacco: 45; packs per day: 1; Cigarettes Per Day: 20; Second Hand Exposure: No; Do You Dip or Chew Tobacco: No; Hx Alcohol Use: No Hx Substance Use: No Preferred Language: Arabic Communication Ability: Effective Blanking 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 Required: No Beliefs That Will Affect Care: None marital status: Current Living Situation: Spouse current occupational status: employed 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 Feels Safe at Home: Yes Childhood Exposure to Second-Hand Smoke: Yes Diet: low salt caffeine: Yes Dental Care, Regularly: No Physical Activity Frequency: Does not Exercise Seatbelt Use: always Assistive Devices: Denture - Upper and Glasses Review of Systems Review of Systems: All systems reviewed & are unremarkable except as noted in HPI & below Physical Exam Constitutional: WD/WN, vitals as above Eyes: PERRL, conjunctivae normal, anicteric sclerae ENMT: Mouth: + dry oral mucous membranes; no lip abnormality Mild erythema of posterior oropharynx Neck: trachea midline, no thyromegaly (No tenderness of the neck) Respiratory: normal respiratory effort, lungs clear to auscultation Cardiovascular: RRR, no murmur, no edema Chest (Breasts): Chest: normal inspection of chest Gastrointestinal (Abdomen): normal bowel sounds, soft, nontender, no hepatosplenomegaly Musculoskeletal: Extremities: extremities normal to inspection (No significant tenderness to palpation of all 4 extremities); no cyanosis and no clubbing Skin: no rashes, warm and dry Neurologic: moves all extremities and awake; no focal motor deficits Psychiatric: A+Ox3, euthymic affect Lymphatic: no lymphedema Results & Data Results & Data Vital Signs (Past 12 Hours) Vital Signs Temp Pulse Pulse Resp BP BP Pulse Ox 04/22/25 09:51 96 H 20 134/71 96 04/22/25 08:09 72 20 95 04/22/25 08:08 71 04/22/25 07:49 36.5 C 75 20 158/85 H 96 O2 Del Method 04/22/25 09:51 Room Air 04/22/25 08:09 Room Air 04/22/25 08:08 04/22/25 07:49 Room Air Laboratory Results CBC, CMP, CK, UA, respiratory biofire, PT/INR, VBG, TSH, procalcitonin reviewed Diagnostic Findings CT head, CT abdomen/pelvis reviewed ECG Additional Comments: ECG on 04/22/2025 at 7:49 AM with normal sinus rhythm, rate 70, no acute ischemic changes Code Status & VTE Plan Code Status DNR/DNI VTE Prophylaxis Plan VTE Prophylaxis will be ordered: Yes PG Care Time/CCT Total # of Minutes Spent Total Time Spent with Patient: Total time spent is greater than 50% in coordination of care (as documented) at patient's floor/unit and/or counseling patient: Coding Level of Care Code 71837 INT INP/OBS CARE MIN Diagnoses MARI (acute kidney injury) N17.9 Rhabdomyolysis M62.82 Elevated troponin R79.89 Hypoglycemia E16.2
[2025-04-22 10:47] LABS: Appearance Urine Clear (Clear); Bacteria Urine Automated None Seen (None Seen); Epithelial Cell Urine Auto 0-2 /hpf (0-2); Glucose Urine UA Negative (Negative); RBC Urine Automated 0-2 /hpf (0-2); WBC Urine Automated 0-5 /hpf (0-5)
--- NOTE | 2025-04-22 11:39 | Nephrology Consultation ---
Date of Consultation April 22, 2025 Assessment & Plan (1) MARI (acute kidney injury): * Nonoliguric MARI. Urine sediment is negative for hematuria, pyuria, granular casts. Abdominal CT is negative for hydronephrosis. Patient spontaneously voided 700 cc while in the emergency department. PVR was 0 * Clinically suspect MARI on the basis of rhabdomyolysis in the setting of DANIAL inhibitor, metformin therapy * Recommend discontinue lisinopril, metformin, ezetimibe and rosuvastatin * Patient has received 2 L 0.9 NS while in the EMD * Monitor CMP, CPK, UO * Volume status and electrolyte balance remain acceptable at this time. No acute indication for SALES INTERN therapy * Briefly discussed indications/benefits/risks to SALES INTERN therapy with the patient today. Explained that at this time conservative therapy is warranted with close monitoring. (2) Chronic kidney disease: * CKD stage G3a/A1 (moderate impairment). Baseline creatinine 1.31.4 w/ EGFR 54 cc/minute. CKD is likely on the basis of microvascular disease (3) Rhabdomyolysis: * Hold ezetimibe and rosuvastatin * Although uncommon rhabdomyolysis can occur with long-term statin therapy * Monitor CPK * Continue gentle hydration (4) Type II diabetes mellitus: * Metformin has been discontinued. Patient currently receiving dextrose infusion due to recurrent hypoglycemia (5) Coronary artery disease: * h/o ASCVD. Currently patient denies angina (6) Dyslipidemia: (7) Abdominal aortic aneurysm: History of Present Illness Reason for Consultation: MARI Attending Physician: Kisha Grewal MD History of Present Illness Mr. Salazar is a 74-year-old white male who is seen at the request of the [facility] hospitalist service for evaluation of MARI. Information for the HPI is obtained from direct patient interview and review of the EMR. HPI summarized as follows: Mr. Salazar has CKD. Baseline creatinine 1.31.4 w/ EGFR 54 cc/minute. He has not undergone nephrology evaluation in the past. His medical history is significant for AODM, hypercholesterolemia, ASCVD, AAA s/p surgical repair. Mr. Salazar works for [employer] and [employer]. Over the past 1 week he has become progressively weaker. He quit his job. He subsequently developed dysgeusia, recurrent emesis and diarrhea. He remained on his ezetimibe, metformin, rosuvastatin and lisinopril. This morning Mr. Salazar was lethargic at home. EMS was called. BSG was found to be 37. He received D10 with an improvement of his blood sugar to 137 mg/DL. He was brought to the emergency department where he was found to be afebrile and hemodynamically stable. Noncontrast head CT showed no acute intracranial findings. Noncontrast abdominal CT was negative for hydronephrosis. There was evidence of diverticulosis but no acute diverticulitis. No other acute process within the abdomen or pelvis was reported. Laboratory studies revealed WBC 4.4, Hgb 12.7, Cr 8.68 (1.4 12/14/2024), BUN 81, NA 140, K4.4, CO2 21, glucose 132, AST 272, ALT 423, CPK 4909, troponin 26.1, albumin 3.2. Urinalysis revealed SPGR 1.0081+ protein, 3+ blood. Urine microscopy 02 RBCs/hpf, no granular casts reported. Testing for SARS Cov 2, influenza and RSV were negative. Bladder scan was performed in the emergency department. Patient was found to have 700 cc urine. He voided without difficulty. PVR was 0. Allergies Allergy/AdvReac Type Severity Reaction Status Date / Time amoxicillin Allergy Unknown UNKNOWN Verified 01/26/25 09:30 clavulanic acid Allergy Unknown UNKNOWN Verified 01/26/25 09:30 Home Medications Medication Instructions Recorded Confirmed Type aspirin 81 mg tablet 81 mg PO DAILY 04/06/19 04/22/25 History ezetimibe 10 mg tablet (Zetia) 10 mg PO DAILY #90 tabs 06/20/24 04/22/25 Rx blood sugar diagnostic (OneTouch #100 ea 06/23/24 01/26/25 Rx Ultra Test strips) blood-glucose meter (OneTouch #100 ea 06/23/24 01/26/25 Rx Ultra2 Meter) lancets 30 gauge (OneTouch #100 ea 06/23/24 01/26/25 Rx UltraSoft 2 Lancet) nitroglycerin 0.4 mg sublingual 0.4 mg sublingual Q5M PRN chest 01/28/25 04/22/25 Rx tablet pain #25 tabs rosuvastatin 40 mg tablet 40 mg PO DAILY #100 tabs 02/05/25 04/22/25 Rx lisinopril 10 mg tablet 10 mg PO DAILY #100 tabs 02/15/25 04/22/25 Rx metformin 500 mg tablet 1,000 mg (2 x 500 mg) PO BID #360 03/12/25 04/22/25 Rx tabs metoprolol tartrate 25 mg tablet 25 mg PO BID #180 tabs 04/22/25 04/22/25 Rx Patient History Surgical History History of cardiac cath Family History Father Coronary heart disease Family/Other Coronary heart disease Diabetes Brother Myocardial infarction Sister Myocardial infarction Denies family history of Colon cancer Ovarian cancer Prostate cancer Breast cancer Social History (Updated 06/18/24 @ 08:53 by NATHEN Cifuentes) Smoking Status: Former smoker Tobacco Type: Cigarettes Age Started Using Tobacco: 16; Age Quit Using Tobacco: 45; packs per day: 1; Cigarettes Per Day: 20; Second Hand Exposure: No; Do You Dip or Chew Tobacco: No; Hx Alcohol Use: No Hx Substance Use: No Preferred Language: Tajik Communication Ability: Effective Television Repairer Required: No Beliefs That Will Affect Care: None marital status: Current Living Situation: Spouse current occupational status: employed 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 Other Information That Helps Us Care for You: No Feels Safe at Home: Yes Safety Concerns: Feels Safe At This Time Childhood Exposure to Second-Hand Smoke: Yes Diet: low salt caffeine: Yes Dental Care, Regularly: No Physical Activity Frequency: Does not Exercise Seatbelt Use: always Assistive Devices: Denture - Upper and Glasses Review of Systems Constitutional: no fever Eyes: no problem reported Ear, Nose, Mouth, Throat: no problem reported Respiratory: no cough and no dyspnea Cardiovascular: no chest pain Gastrointestinal: + nausea, + vomiting and + diarrhea/loos e stools; no abdominal pain Dysgeusia Genitourinary: no dysuria, no difficulty urinating, no hematuria or no flank pain Integumentary: no rash Neurologic: + generalized weakness Physical Exam Constitutional: not in distress Eyes: PERRL, conjunctivae normal, anicteric sclerae ENMT: external ear and nose normal, oropharynx normal Neck: trachea midline, no thyromegaly Respiratory: normal respiratory effort, lungs clear to auscultation Cardiovascular: Rate/Rhythm: regular rate and regular rhythm Extremities: + edema (Trace) Gastrointestinal (Abdomen): normal bowel sounds, soft, nontender, no hepatosplenomegaly Skin: no rashes, warm and dry Neurologic: no focal motor deficits Results & Data Vital Signs (Past 12 Hours) Vital Signs Temp Pulse Pulse Resp BP BP Pulse Ox 04/22/25 10:50 68 21 126/70 97 04/22/25 09:51 96 H 20 134/71 96 04/22/25 08:09 72 20 95 04/22/25 08:08 71 04/22/25 07:49 36.5 C 75 20 158/85 H 96 O2 Del Method 04/22/25 10:50 Room Air 04/22/25 09:51 Room Air 04/22/25 08:09 Room Air 04/22/25 08:08 04/22/25 07:49 Room Air Laboratory Results Laboratory Results WBC 4.40 K/ul (4.8-10.8) L 04/22/25 07:54 RBC 4.06 M/uL (4.70-6.10) L 04/22/25 07:54 Hgb 12.7 g/dl (14.0-18.0) L 04/22/25 07:54 Hct 36.6 % (42.0-52.0) L 04/22/25 07:54 MCV 90.1 fL (80.0-100.0) 04/22/25 07:54 MCH 31.3 pg (25.0-34.0) 04/22/25 07:54 MCHC 34.7 g/dL (32.0-36.0) 04/22/25 07:54 RDW Std Deviation 42.5 fL (36.4-46.3) 04/22/25 07:54 RDW Coeff of Ronny 12.7 % (11.5-14.5) 04/22/25 07:54 Plt Count 183 K/uL (130-400) 04/22/25 07:54 MPV 9.7 fL (9.4-12.4) 04/22/25 07:54 Immature Gran % (Auto) 0.7 % 04/22/25 07:54 Neut % (Auto) 73.4 % 04/22/25 07:54 Lymph % (Auto) 11.1 % 04/22/25 07:54 [place] % (Auto) 13.6 % 04/22/25 07:54 Eos % (Auto) 0.7 % 04/22/25 07:54 Baso % (Auto) 0.5 % 04/22/25 07:54 Neut # (Auto) 3.23 K/uL (1.40-6.50) 04/22/25 07:54 Lymph # (Auto) 0.49 K/uL (1.20-3.40) L 04/22/25 07:54 [place] # (Auto) 0.60 K/uL (0.11-0.59) H 04/22/25 07:54 Eos # (Auto) 0.03 K/uL (0.00-0.50) 04/22/25 07:54 Baso # (Auto) 0.02 K/uL (0.00-0.20) 04/22/25 07:54 Immature Gran # (Auto) 0.03 K/uL (0.01-0.20) 04/22/25 07:54 PT 11.4 Seconds (9.0-12.0) 04/22/25 08:55 INR 1.1 (0.9-1.1) 04/22/25 08:55 VBG pH 7.28 (7.36-7.41) L 04/22/25 10:04 VBG pCO2 42 mmHg (38-50) 04/22/25 10:04 VBG pO2 40 mmHg 04/22/25 10:04 VBG HCO3 20 mmol/L 04/22/25 10:04 VBG O2 Saturation 70.0 % 04/22/25 10:04 VBG Base Excess -6.7 mEq/L 04/22/25 10:04 Sodium 140 mmol/L (136-145) 04/22/25 07:54 Potassium 4.4 mmol/L (3.5-5.1) 04/22/25 07:54 Chloride 110 mmol/L (98-107) H 04/22/25 07:54 Carbon Dioxide 21 mmol/L (21-32) 04/22/25 07:54 Anion Gap 9 (3-11) 04/22/25 07:54 BUN 81 mg/dl (6-23) H 04/22/25 07:54 Creatinine 8.68 mg/dl (0.6-1.4) H* 04/22/25 07:54 Est Cr Clr Drug Dosing 7.5 ml/min 04/22/25 07:54 eGFR 5.91 04/22/25 07:54 BUN/Creatinine Ratio 9.3 (10-20) L 04/22/25 07:54 Glucose 132 mg/dl (70-99(Fasting)) H 04/22/25 07:54 POC Glucose 66 mg/dl (70-99) L* 04/22/25 09:58 Lactate 1.1 mmol/L (0.4-2.0) 04/22/25 10:04 Calcium 7.9 mg/dl (8.6-10.3) L 04/22/25 07:54 Phosphorus 5.7 mg/dl (2.5-4.9) H 04/22/25 08:55 Magnesium 2.4 mg/dl (1.7-2.4) 04/22/25 07:54 Total Bilirubin 0.4 mg/dl (0.2-1.0) 04/22/25 07:54 AST 272 U/L (13-39) H 04/22/25 07:54 ALT 423 U/L (7-52) H 04/22/25 07:54 Alkaline Phosphatase 72 U/L (34-104) 04/22/25 07:54 Total Creatine Kinase 4909 U/L (30-223) H 04/22/25 07:54 Troponin I High Sens 23.2 pg/ml (0-20) H 04/22/25 08:55 Total Protein 6.0 gm/dl (6.0-8.3) 04/22/25 07:54 Albumin 3.2 gm/dl (3.4-5.0) L 04/22/25 07:54 Globulin 2.8 gm/dl (2.5-4.0) 04/22/25 07:54 Albumin/Globulin Ratio 1.1 (0.9-2) 04/22/25 07:54 Lipase 108 U/L (11-82) H 04/22/25 07:54 Urine Color Yellow 04/22/25 09:53 Urine Appearance Clear (Clear) 04/22/25 09:53 Urine pH 5.5 (4.5-7.5) 04/22/25 09:53 Ur Specific [place] 1.008 (1.000-1.030) 04/22/25 09:53 Urine Protein 1+ (Negative) H 04/22/25 09:53 Urine Glucose (UA) Negative (Negative) 04/22/25 09:53 Urine Ketones Negative (Negative) 04/22/25 09:53 Urine Blood 3+ (Negative) H 04/22/25 09:53 Urine Nitrite Negative (Negative) 04/22/25 09:53 Urine Bilirubin Negative (Negative) 04/22/25 09:53 Urine Urobilinogen Negative (Negative) 04/22/25 09:53 Ur Leukocyte Esterase Negative (Negative) 04/22/25 09:53 Urine WBC (Auto) 0-5 /hpf (0-5) 04/22/25 09:53 Urine RBC (Auto) 0-2 /hpf (0-2) 04/22/25 09:53 U Hyaline Cast (Auto) 3-5 /lpf (0-2) H 04/22/25 09:53 U Epithel Cells (Auto) 0-2 /hpf (0-2) 04/22/25 09:53 Urine Bacteria (Auto) None Seen (None Seen) 04/22/25 09:53 Urine Comment 04/22/25 09:53 SARS-CoV-2 (PCR) NEGATIVE (Negative) 04/22/25 08:00 Influenza Type A (PCR) Negative (Neg) 04/22/25 08:00 Influenza Type B (PCR) Negative (Neg) 04/22/25 08:00 RSV (RT-PCR) Negative (Neg) 04/22/25 08:[address] 04/22/25 08:16 CT SCAN OF THE BRAIN WITHOUT IV CONTRAST CLINICAL HISTORY: Altered mental status. COMPARISON STUDY: None. TECHNIQUE: Unenhanced axial CT scan of the brain was performed from the vertex to the skull base. A dose lowering technique was utilized adhering to the principles of ALARA. CT DOSE: 1977.58 mGy.cm FINDINGS: Brain parenchyma: No acute intracranial hemorrhage, midline shift or mass effect is present. Friedman-white matter differentiation is preserved. There are no extra- axial fluid collections. There are no findings to suggest acute dural sinus thrombosis or acute territorial infarct. Ventricles, sulci, cisterns: There is no hydrocephalus. The basal cisterns are patent. Calvarium: There are no calvarial fractures. Sinuses and mastoids: Polypoid mucosal thickening of the bilateral maxillary and ethmoid sinuses is partially imaged on this exam. Orbits: The bony orbits are grossly intact. IMPRESSION: 1. No acute intracranial findings. 2. Polypoid mucosal thickening of the bilateral ethmoid and maxillary sinuses. ACT 112: Negative or not required by law. Electronically signed by: Sriram Reich M.D. 04/22/2025 10:00 AM Abdomen/Pelvis CT 04/22/25 08:46 CT OF THE ABDOMEN AND PELVIS WITHOUT CONTRAST CLINICAL HISTORY: Nausea, vomiting and diarrhea; abdominal pain; acute renal failure. COMPARISON STUDY: CTA of the abdomen pelvis March 13, 2021. TECHNIQUE: Axial images of the abdomen and pelvis were obtained without IV contrast. Images were reviewed in the axial, sagittal, and coronal planes. Automated exposure control was utilized for the study. A dose lowering technique was utilized adhering to the principles of ALARA. FINDINGS: Two calcified left lower lobe pulmonary nodules are unchanged. These are benign. There is no pneumatosis, free air or portal venous gas. No renal, ureteral or bladder calculi are present. There is no hydronephrosis. There is mild symmetric bilateral perinephric stranding. Low-attenuation bilateral renal lesions are suboptimally assessed on this exam favor cysts. Interval repair of an abdominal aortic aneurysm is noted. There is a gallstone within the gallbladder without evidence for acute cholecystitis. Evaluation of the solid abdominal viscera is suboptimal on this unenhanced examination. Liver, spleen, adrenal glands and pancreas are unremarkable. There is no biliary or pancreatic ductal dilatation. There is no lymphadenopathy. There are no fluid collections. No evidence for a bowel obstruction. As before, appendix is within the right inguinal hernia. There is colonic diverticulosis. No evidence for acute diverticulitis. IMPRESSION: 1. No urinary calculi or hydronephrosis. Nonspecific symmetric bilateral per inephric stranding. 2. No acute process within the abdomen or pelvis on unenhanced exam. 3. Colonic diverticulosis. No evidence for acute diverticulitis. 4. Interval abdominal aortic aneurysm repair. ACT 112: Negative or not required by law. Electronically signed by: Sriram Reich M.D. 04/22/2025 10:06 AM PG Care Time/CCT Total # of Minutes Spent Total Time Spent with Patient: Total time spent is greater than 50% in coordination of care (as documented) at patient's floor/unit and/or counseling patient: Coding Level of Care Code 24014 IN/OBS CONSULT LVL 5,80M Diagnoses MARI (acute kidney injury) N17.9 Chronic kidney disease N18.9 Rhabdomyolysis M62.82 Type II diabetes mellitus E11.9 Coronary artery disease I25.10 Dyslipidemia E78.5 Abdominal aortic aneurysm I71.4
[2025-04-22 11:52] LABS: Base Excess VBG -6.9 mEq/L; HCO3 VBG 20 mmol/L; Oxygen Saturation VBG 67.1 %; PCO2 VBG 43 mmHg (38-50); PO2 VBG 39 mmHg; pH VBG 7.27 (7.36-7.41)
[2025-04-22 12:20] LABS: Alanine Aminotransferase 354.0 U/L (7-52); Albumin Globulin Ratio 1.2 (0.9-2); Alkaline Phosphatase 61.0 U/L (34-104); Anion Gap 6.0 (3-11); Bilirubin,Total 0.3 mg/dl (0.2-1.0); Blood Urea Nitrogen 73.0 mg/dl (6-23); Calcium 7.3 mg/dl (8.6-10.3); Carbon Dioxide 20.0 mmol/L (21-32); Chloride 116.0 mmol/L (98-107); Creatinine Clr Calc Pharmacy 8.0 ml/min; Globulin 2.4 gm/dl (2.5-4.0); Glucose 84.0 mg/dl (70-99(Fasting)); Potassium 4.8 mmol/L (3.5-5.1); Sodium 142.0 mmol/L (136-145); Total Protein 5.2 gm/dl (6.0-8.3)
[2025-04-22 12:32] LABS: Thyroid Stimulating Hormone 2.147 uIu/ml (0.300-4.500)
[2025-04-22 12:33] LABS: Creatine Kinase 4320.0 U/L (30-223)
[2025-04-22 12:34] LABS: Procalcitonin 0.45 ng/ml (0-0.5)
[2025-04-22 12:40] LABS: Chlamydia pneumoniae PCR Not Detected (NotDetected); Coronavirus 229E PCR Not Detected (NotDetected); Coronavirus CoV-2 (COVID19)PCR Not Detected (NotDetected); Coronavirus HKU1 PCR Not Detected (NotDetected); Coronavirus NL63 PCR Not Detected (NotDetected); Coronavirus OC43PCR Not Detected (NotDetected); Human Metapneumovirus PCR Not Detected (NotDetected); Parainfluenza Virus 1 PCR Not Detected (NotDetected); Parainfluenza Virus 2 PCR Not Detected (NotDetected); Parainfluenza Virus 3 PCR DETECTED (NotDetected); Parainfluenza Virus 4 PCR Not Detected (NotDetected); Respiratory Syncytial VirusPCR Not Detected (NotDetected); Rhinovirus/Enterovirus PCR Not Detected (NotDetected)
[2025-04-22 13:00] LABS: Lyme Screen Rflx Confirmation Negative (Negative)
[2025-04-22] MEDS ORDERED: ONDANSETRON INJ 2 MG/ML 2 ML VIAL IV PRN (13:37)
[2025-04-22] MEDS ORDERED: DEXTROSE 50% 50 ML SYRINGE IV PRN (13:37)
[2025-04-22] MEDS ORDERED: ACETAMINOPHEN 325 MG TAB PO PRN (13:37)
[2025-04-22] MEDS ORDERED: GLUCOSE 40% GEL 15 GM TUBE PO PRN (13:37)
[2025-04-22] MEDS ORDERED: GLUCAGON FOR INJ 1 MG VIAL SQ PRN (13:37)
[2025-04-22] MEDS: SODIUM CHLORIDE 0.9% 1,000 ML IV SCH (13:57)
[2025-04-22] MEDS: INSULIN ASPART PER UNIT CHARGE SC SCH (13:59)
[2025-04-22] MEDS: CARBOHYDRATES FOR HYPOGLYCEMIA PO PRN (15:37)
[2025-04-22] MEDS: METOPROLOL TARTRATE 25 MG TAB PO SCH (22:03)
[2025-04-22] MEDS: HEPARIN SOD 5,000 UNIT/0.5 ML VIAL SQ SCH (22:07)
[2025-04-22 22:31] LABS: Appearance Urine Clear (Clear); Bacteria Urine Automated None Seen (None Seen); Cast Urine Automated 0-2 /lpf (0-2); Epithelial Cell Urine Auto 0-2 /hpf (0-2); Glucose Urine UA Negative (Negative); RBC Urine Automated 0-2 /hpf (0-2); WBC Urine Automated 0-5 /hpf (0-5)
[2025-04-23 02:30] LABS: A calco-baum cmplx NotReported Not Detected (NotDetected); Bact fragilis Not Reported Not Detected (NotDetected); Blood Culture Id Panel PCR Panel Negative (NotDetected); C auris Not Reported Not Detected (NotDetected); Calbicans Not Reported Not Detected (NotDetected); Candida glabrata Not Reported Not Detected (NotDetected); Candida krusei Not Reported Not Detected (NotDetected); Cneoformans/gatti Not Reported Not Detected (NotDetected); Cparapsilosis Not Reported Not Detected (NotDetected); Ctropicalis Not Reported Not Detected (NotDetected); E cloacae compx Not Reported Not Detected (NotDetected); Efaecalis Not Reported Not Detected (NotDetected); Efaecium Not Reported Not Detected (NotDetected); Enterobacterales Not Reported Not Detected (NotDetected); Escherichia coli Not Reported Not Detected (NotDetected); H influenzae Not Reported Not Detected (NotDetected); K aerogenes Not Reported Not Detected (NotDetected); Koxytoca Not Reported Not Detected (NotDetected); Kpneumoniae grp Not Reported Not Detected (NotDetected); Lmonocyt Not Reported Not Detected (NotDetected); N meningitidis Not Reported Not Detected (NotDetected); P aeruginosa Not Reported Not Detected (NotDetected); Proteus spp Not Reported Not Detected (NotDetected); Salmonella spp Not Reported Not Detected (NotDetected); Staph lugdunensis Not Reported Not Detected (NotDetected); Staph spp. Not Reported Not Detected (NotDetected); Staphaureus Not Reported Not Detected (NotDetected); Staphepi Not Reported Not Detected (NotDetected); Stenmaltophilia Not Reported Not Detected (NotDetected); Strep agal(GrpB) Not Reported Not Detected (NotDetected); Strep pneum Not Reported Not Detected (NotDetected); Strep pyog (GrpA) Not Reported Not Detected (NotDetected); Strep spp Not Reported Not Detected (NotDetected)
[2025-04-23] MEDS: GLUCOSE 10 TAB/TUBE PO PRN (04:52)
[2025-04-23 06:35] LABS: A calco-baum cmplx NotReported Not Detected (NotDetected); Bact fragilis Not Reported Not Detected (NotDetected); Blood Culture Id Panel See PCR Comment (NotDetected); C auris Not Reported Not Detected (NotDetected); Calbicans Not Reported Not Detected (NotDetected); Candida glabrata Not Reported Not Detected (NotDetected); Candida krusei Not Reported Not Detected (NotDetected); Cneoformans/gatti Not Reported Not Detected (NotDetected); Cparapsilosis Not Reported Not Detected (NotDetected); Ctropicalis Not Reported Not Detected (NotDetected); E cloacae compx Not Reported Not Detected (NotDetected); Efaecalis Not Reported Not Detected (NotDetected); Efaecium Not Reported Not Detected (NotDetected); Enterobacterales Not Reported Not Detected (NotDetected); Escherichia coli Not Reported Not Detected (NotDetected); H influenzae Not Reported Not Detected (NotDetected); K aerogenes Not Reported Not Detected (NotDetected); Koxytoca Not Reported Not Detected (NotDetected); Kpneumoniae grp Not Reported Not Detected (NotDetected); Lmonocyt Not Reported Not Detected (NotDetected); N meningitidis Not Reported Not Detected (NotDetected); P aeruginosa Not Reported Not Detected (NotDetected); Proteus spp Not Reported Not Detected (NotDetected); Salmonella spp Not Reported Not Detected (NotDetected); Staph lugdunensis Not Reported Not Detected (NotDetected); Staph spp. Not Reported DETECTED (NotDetected); Staphaureus Not Reported Not Detected (NotDetected); Staphepi Not Reported DETECTED (NotDetected); Staphylococcus spp. DETECTED (NotDetected); Stenmaltophilia Not Reported Not Detected (NotDetected); Strep agal(GrpB) Not Reported Not Detected (NotDetected); Strep pneum Not Reported Not Detected (NotDetected); Strep pyog (GrpA) Not Reported Not Detected (NotDetected); Strep spp Not Reported Not Detected (NotDetected); mecAC Resistant Gene Not Detected (NotDetected)
[2025-04-23 07:08] LABS: Hematocrit (blood only) 34.4 % (42.0-52.0); Hemoglobin 11.8 g/dl (14.0-18.0); Immature Granulocytes # (auto) 0.03 K/uL (0.01-0.20); Immature Granulocytes % (auto) 0.7 %; Mean Corpuscular Hemoglobin 31.1 pg (25.0-34.0); Mean Corpuscular Volume 90.8 fL (80.0-100.0); Platelet Count 157 K/uL (130-400); RDW Standard Deviation 43.6 fL (36.4-46.3); Red Blood Count 3.79 M/uL (4.70-6.10); White Blood Count 4.47 K/ul (4.8-10.8)
[2025-04-23 07:26] LABS: Hemoglobin A1C 7.4 % (4.5-5.6)
[2025-04-23 07:33] LABS: Alanine Aminotransferase 292.0 U/L (7-52); Albumin Globulin Ratio 1.0 (0.9-2); Alkaline Phosphatase 56.0 U/L (34-104); Anion Gap 5.0 (3-11); Bilirubin,Total 0.3 mg/dl (0.2-1.0); Blood Urea Nitrogen 62.0 mg/dl (6-23); Calcium 7.1 mg/dl (8.6-10.3); Carbon Dioxide 21.0 mmol/L (21-32); Chloride 115.0 mmol/L (98-107); Creatinine Clr Calc Pharmacy 11.4 ml/min; Globulin 2.6 gm/dl (2.5-4.0); Glucose 80.0 mg/dl (70-99(Fasting)); Magnesium 1.9 mg/dl (1.7-2.4); Potassium 4.9 mmol/L (3.5-5.1); Sodium 141.0 mmol/L (136-145); Total Protein 5.3 gm/dl (6.0-8.3)
[2025-04-23 07:47] LABS: Creatine Kinase 3260.0 U/L (30-223)
[2025-04-23] MEDS ORDERED: PHARMACY GLYCEMIC MGMT CONSULT PRN (08:16)
[2025-04-23 08:47] LABS: Staphylococcus epidermidis DETECTED (NotDetected)
[2025-04-23] MEDS: ASPIRIN 81 MG ECTAB PO SCH (09:06)
--- NOTE | 2025-04-23 10:08 | Nephrology Progress Note ---
Date of Service April 23, 2025 Assessment & Plan (1) MARI (acute kidney injury): Plan: * Nonoliguric MARI. Urine sediment is negative for hematuria, pyuria, granular casts. Abdominal CT is negative for hydronephrosis. Patient spontaneously voided 700 cc while in the emergency department. PVR was 0 * Clinically suspect MARI on the basis of rhabdomyolysis in the setting of DANIAL inhibitor, metformin therapy * Lisinopril, metformin, ezetimibe and rosuvastatin have been held * UO 3325 last 24 hours. Patient receiving D50.9NS at 125 cc/hr * Continue IV hydration until blood sugar stabilizes and CPK < 2000 * Monitor CMP, CPK, UO (2) Chronic kidney disease: Plan: * CKD stage G3a/A1 (moderate impairment). Baseline creatinine 1.31.4 w/ EGFR 54 cc/minute. CKD is likely on the basis of microvascular disease (3) Rhabdomyolysis: Plan: * Improving. * Hold ezetimibe and rosuvastatin * Monitor CPK * Continue IV hydration until CPK <2000 (4) Parainfluenza virus infection: Plan: * Supportive care (5) Type II diabetes mellitus: Plan: * Metformin has been discontinued. Patient currently receiving dextrose infusion due to recurrent hypoglycemia (6) Coronary artery disease: Plan: * h/o ASCVD. Currently patient denies angina (7) Dyslipidemia: (8) Abdominal aortic aneurysm: Admission and Anticipated Discharge Date Admission Date: April 22, 2025 Subjective Mr. Salazar was evaluated in his hospital room this morning. He c/o sore throat and cough. He requests cough drops. Mr. Salazar reports brisk UO Review of Systems Constitutional: no fever Eyes: no problem reported Ear, Nose, Mouth, Throat: no problem reported Respiratory: no cough and no dyspnea Cardiovascular: no chest pain Gastrointestinal: no abdominal pain Dysgeusia Genitourinary: no dysuria, no difficulty urinating, no hematuria or no flank pain Integumentary: no rash Neurologic: + generalized weakness Physical Exam Constitutional: not in distress Eyes: PERRL, conjunctivae normal, anicteric sclerae ENMT: external ear and nose normal, oropharynx normal Neck: trachea midline, no thyromegaly Respiratory: normal respiratory effort, lungs clear to auscultation Cardiovascular: Rate/Rhythm: regular rate and regular rhythm Extremities: + edema (Trace) Gastrointestinal (Abdomen): normal bowel sounds, soft, nontender, no hepatosplenomegaly Skin: no rashes, warm and dry Neurologic: no focal motor deficits Results & Data Vital Signs (Past 12 Hours) Vital Signs Temp Pulse Pulse Resp BP Pulse Ox O2 Del Method 04/23/25 08:11 36.6 C 70 19 138/71 95 Room Air 04/23/25 06:04 62 04/23/25 02:52 36.6 C 61 18 110/74 96 Room Air 04/22/25 23:11 36.6 C 63 18 120/73 96 Room Air Laboratory Results Laboratory Results - last 24 hr 04/22/25 04/22/25 04/22/25 07:54 08:08 09:53 WBC RBC Hgb Hct MCV MCH MCHC RDW Std Deviation RDW Coeff of Ronny Plt Count MPV Immature Gran % (Auto) Neut % (Auto) Lymph % (Auto) [place] % (Auto) Eos % (Auto) Baso % (Auto) Neut # (Auto) Lymph # (Auto) [place] # (Auto) Eos # (Auto) Baso # (Auto) Immature Gran # (Auto) VBG pH VBG pCO2 VBG pO2 VBG HCO3 VBG O2 Saturation VBG Base Excess Sodium Potassium Chloride Carbon Dioxide Anion Gap BUN Creatinine Est Cr Clr Drug Dosing eGFR BUN/Creatinine Ratio Glucose POC Glucose Estimat Average Glucose Hemoglobin A1c Lactate Calcium Magnesium Total Bilirubin AST ALT Alkaline Phosphatase Total Creatine Kinase Total Protein Albumin Globulin Albumin/Globulin Ratio Procalcitonin TSH Urine Color Yellow Urine Appearance Clear Urine pH 5.5 Ur Specific Kathleen 1.008 Urine Protein 1+ H Urine Glucose (UA) Negative Urine Ketones Negative Urine Blood 3+ H Urine Nitrite Negative Urine Bilirubin Negative Urine Urobilinogen Negative Ur Leukocyte Esterase Negative Urine WBC (Auto) 0-5 Urine RBC (Auto) 0-2 U Hyaline Cast (Auto) 3-5 H U Epithel Cells (Auto) 0-2 Urine Bacteria (Auto) None Seen Urine Comment Adenovirus (PCR) Not Detected Anaplasma Smear See Comment A. phagocytophilum DNA Babesia Smear See Comment Babesia microti DNA PCR Pending B. pertussis DNA (PCR) Not Detected B.parapertussis DNA PCR Not Detected Lyme Disease Screen C. pneumoniae DNA (PCR) Not Detected Coronavirus OC43 (PCR) Not Detected Coronavirus HKU1 (PCR) Not Detected Coronavirus 229E (PCR) Not Detected SARS-CoV-2 (PCR) Not Detected Coronavirus NL63 (PCR) Not Detected Human Metapneumovir PCR Not Detected Influenza Type A (PCR) Not Detected Influenza Type B (PCR) Not Detected M. pneumoniae (PCR) Not Detected Parainfluenza 1 (PCR) Not Detected Parainfluenza 2 (PCR) Not Detected Parainfluenza 3 (PCR) DETECTED A Parainfluenza 4 (PCR) Not Detected RSV (PCR) Not Detected Entero/Rhino (PCR) Not Detected Staphylococcus sp PCR mecA/C-Methicil Resis Gene Staph epidermidis (PCR) Group A Strep (PCR) Bld Cult ID Panel PCR 04/22/25 04/22/25 04/22/25 10:04 10:19 10:19 WBC RBC Hgb Hct MCV MCH MCHC RDW Std Deviation RDW Coeff of Ronny Plt Count MPV Immature Gran % (Auto) Neut % (Auto) Lymph % (Auto) [place] % (Auto) Eos % (Auto) Baso % (Auto) Neut # (Auto) Lymph # (Auto) [place] # (Auto) Eos # (Auto) Baso # (Auto) Immature Gran # (Auto) VBG pH 7.28 L VBG pCO2 42 VBG pO2 40 VBG HCO3 20 VBG O2 Saturation 70.0 VBG Base Excess -6.7 Sodium Potassium Chloride Carbon Dioxide Anion Gap BUN Creatinine Est Cr Clr Drug Dosing eGFR BUN/Creatinine Ratio Glucose POC Glucose Estimat Average Glucose Hemoglobin A1c Lactate 1.1 Calcium Magnesium Total Bilirubin AST ALT Alkaline Phosphatase Total Creatine Kinase Total Protein Albumin Globulin Albumin/Globulin Ratio Procalcitonin 0.45 TSH Urine Color Urine Appearance Urine pH Ur Specific Kathleen Urine Protein Urine Glucose (UA) Urine Ketones Urine Blood Urine Nitrite Urine Bilirubin Urine Urobilinogen Ur Leukocyte Esterase Urine WBC (Auto) Urine RBC (Auto) U Hyaline Cast (Auto) U Epithel Cells (Auto) Urine Bacteria (Auto) Urine Comment Adenovirus (PCR) Anaplasma Smear A. phagocytophilum DNA Babesia Smear Babesia microti DNA PCR B. pertussis DNA (PCR) B.parapertussis DNA PCR Lyme Disease Screen Negative C. pneumoniae DNA (PCR) Coronavirus OC43 (PCR) Coronavirus HKU1 (PCR) Coronavirus 229E (PCR) SARS-CoV-2 (PCR) Coronavirus NL63 (PCR) Human Metapneumovir PCR Influenza Type A (PCR) Influenza Type B (PCR) M. pneumoniae (PCR) Parainfluenza 1 (PCR) Parainfluenza 2 (PCR) Parainfluenza 3 (PCR) Parainfluenza 4 (PCR) RSV (PCR) Entero/Rhino (PCR) Staphylococcus sp PCR DETECTED A mecA/C-Methicil Resis Gene Not Detected Staph epidermidis (PCR) DETECTED A Group A Strep (PCR) Bld Cult ID Panel PCR PCR Panel Negative See PCR Comment 04/22/25 04/22/25 04/22/25 10:47 10:49 11:27 WBC RBC Hgb Hct MCV MCH MCHC RDW Std Deviation RDW Coeff of Ronny Plt Count MPV Immature Gran % (Auto) Neut % (Auto) Lymph % (Auto) [place] % (Auto) Eos % (Auto) Baso % (Auto) Neut # (Auto) Lymph # (Auto) [place] # (Auto) Eos # (Auto) Baso # (Auto) Immature Gran # (Auto) VBG pH VBG pCO2 VBG pO2 VBG HCO3 VBG O2 Saturation VBG Base Excess Sodium Potassium Chloride Carbon Dioxide Anion Gap BUN Creatinine Est Cr Clr Drug Dosing eGFR BUN/Creatinine Ratio Glucose POC Glucose 49 L* 56 L* Estimat Average Glucose Hemoglobin A1c Lactate Calcium Magnesium Total Bilirubin AST ALT Alkaline Phosphatase Total Creatine Kinase Total Protein Albumin Globulin Albumin/Globulin Ratio Procalcitonin TSH Urine Color Urine Appearance Urine pH Ur Specific Kathleen Urine Protein Urine Glucose (UA) Urine Ketones Urine Blood Urine Nitrite Urine Bilirubin Urine Urobilinogen Ur Leukocyte Esterase Urine WBC (Auto) Urine RBC (Auto) U Hyaline Cast (Auto) U Epithel Cells (Auto) Urine Bacteria (Auto) Urine Comment Adenovirus (PCR) Anaplasma Smear A. phagocytophilum DNA Babesia Smear Babesia microti DNA PCR B. pertussis DNA (PCR) B.parapertussis DNA PCR Lyme Disease Screen C. pneumoniae DNA (PCR) Coronavirus OC43 (PCR) Coronavirus HKU1 (PCR) Coronavirus 229E (PCR) SARS-CoV-2 (PCR) Coronavirus NL63 (PCR) Human Metapneumovir PCR Influenza Type A (PCR) Influenza Type B (PCR) M. pneumoniae (PCR) Parainfluenza 1 (PCR) Parainfluenza 2 (PCR) Parainfluenza 3 (PCR) Parainfluenza 4 (PCR) RSV (PCR) Entero/Rhino (PCR) Staphylococcus sp PCR mecA/C-Methicil Resis Gene Staph epidermidis (PCR) Group A Strep (PCR) NOT DETECTED Bld Cult ID Panel PCR 04/22/25 04/22/25 04/22/25 11:42 11:46 11:48 WBC RBC Hgb Hct MCV MCH MCHC RDW Std Deviation RDW Coeff of Ronny Plt Count MPV Immature Gran % (Auto) Neut % (Auto) Lymph % (Auto) [place] % (Auto) Eos % (Auto) Baso % (Auto) Neut # (Auto) Lymph # (Auto) [place] # (Auto) Eos # (Auto) Baso # (Auto) Immature Gran # (Auto) VBG pH 7.27 L VBG pCO2 43 VBG pO2 39 VBG HCO3 20 VBG O2 Saturation 67.1 VBG Base Excess -6.9 Sodium 142 Potassium 4.8 Chloride 116 H Carbon Dioxide 20 L Anion Gap 6 BUN 73 H Creatinine 8.06 H* D Est Cr Clr Drug Dosing 8.0 eGFR 6.46 BUN/Creatinine Ratio 9.1 L Glucose 84 POC Glucose 90 Estimat Average Glucose Hemoglobin A1c Lactate Calcium 7.3 L Magnesium Total Bilirubin 0.3 AST 213 H ALT 354 H Alkaline Phosphatase 61 Total Creatine Kinase 4320 H Total Protein 5.2 L Albumin 2.8 L Globulin 2.4 L Albumin/Globulin Ratio 1.2 Procalcitonin TSH 2.147 Urine Color Urine Appearance Urine pH Ur Specific Kathleen Urine Protein Urine Glucose (UA) Urine Ketones Urine Blood Urine Nitrite Urine Bilirubin Urine Urobilinogen Ur Leukocyte Esterase Urine WBC (Auto) Urine RBC (Auto) U Hyaline Cast (Auto) U Epithel Cells (Auto) Urine Bacteria (Auto) Urine Comment Adenovirus (PCR) Anaplasma Smear A. phagocytophilum DNA Pending Babesia Smear Babesia microti DNA PCR B. pertussis DNA (PCR) B.parapertussis DNA PCR Lyme Disease Screen C. pneumoniae DNA (PCR) Coronavirus OC43 (PCR) Coronavirus HKU1 (PCR) Coronavirus 229E (PCR) SARS-CoV-2 (PCR) Coronavirus NL63 (PCR) Human Metapneumovir PCR Influenza Type A (PCR) Influenza Type B (PCR) M. pneumoniae (PCR) Parainfluenza 1 (PCR) Parainfluenza 2 (PCR) Parainfluenza 3 (PCR) Parainfluenza 4 (PCR) RSV (PCR) Entero/Rhino (PCR) Staphylococcus sp PCR mecA/C-Methicil Resis Gene Staph epidermidis (PCR) Group A Strep (PCR) Bld Cult ID Panel PCR 04/22/25 04/22/25 04/22/25 13:58 15:34 15:57 WBC RBC Hgb Hct MCV MCH MCHC RDW Std Deviation RDW Coeff of Ronny Plt Count MPV Immature Gran % (Auto) Neut % (Auto) Lymph % (Auto) [place] % (Auto) Eos % (Auto) Baso % (Auto) Neut # (Auto) Lymph # (Auto) [place] # (Auto) Eos # (Auto) Baso # (Auto) Immature Gran # (Auto) VBG pH VBG pCO2 VBG pO2 VBG HCO3 VBG O2 Saturation VBG Base Excess Sodium Potassium Chloride Carbon Dioxide Anion Gap BUN Creatinine Est Cr Clr Drug Dosing eGFR BUN/Creatinine Ratio Glucose POC Glucose 115 H 62 L* 64 L* Estimat Average Glucose Hemoglobin A1c Lactate Calcium Magnesium Total Bilirubin AST ALT Alkaline Phosphatase Total Creatine Kinase Total Protein Albumin Globulin Albumin/Globulin Ratio Procalcitonin TSH Urine Color Urine Appearance Urine pH Ur Specific Kathleen Urine Protein Urine Glucose (UA) Urine Ketones Urine Blood Urine Nitrite Urine Bilirubin Urine Urobilinogen Ur Leukocyte Esterase Urine WBC (Auto) Urine RBC (Auto) U Hyaline Cast (Auto) U Epithel Cells (Auto) Urine Bacteria (Auto) Urine Comment Adenovirus (PCR) Anaplasma Smear A. phagocytophilum DNA Babesia Smear Babesia microti DNA PCR B. pertussis DNA (PCR) B.parapertussis DNA PCR Lyme Disease Screen C. pneumoniae DNA (PCR) Coronavirus OC43 (PCR) Coronavirus HKU1 (PCR) Coronavirus 229E (PCR) SARS-CoV-2 (PCR) Coronavirus NL63 (PCR) Human Metapneumovir PCR Influenza Type A (PCR) Influenza Type B (PCR) M. pneumoniae (PCR) Parainfluenza 1 (PCR) Parainfluenza 2 (PCR) Parainfluenza 3 (PCR) Parainfluenza 4 (PCR) RSV (PCR) Entero/Rhino (PCR) Staphylococcus sp PCR mecA/C-Methicil Resis Gene Staph epidermidis (PCR) Group A Strep (PCR) Bld Cult ID Panel PCR 04/22/25 04/22/25 04/22/25 16:19 16:41 20:26 WBC RBC Hgb Hct MCV MCH MCHC RDW Std Deviation RDW Coeff of Ronny Plt Count MPV Immature Gran % (Auto) Neut % (Auto) Lymph % (Auto) [place] % (Auto) Eos % (Auto) Baso % (Auto) Neut # (Auto) Lymph # (Auto) [place] # (Auto) Eos # (Auto) Baso # (Auto) Immature Gran # (Auto) VBG pH VBG pCO2 VBG pO2 VBG HCO3 VBG O2 Saturation VBG Base Excess Sodium Potassium Chloride Carbon Dioxide Anion Gap BUN Creatinine Est Cr Clr Drug Dosing eGFR BUN/Creatinine Ratio Glucose POC Glucose 68 L* 107 H 95 Estimat Average Glucose Hemoglobin A1c Lactate Calcium Magnesium Total Bilirubin AST ALT Alkaline Phosphatase Total Creatine Kinase Total Protein Albumin Globulin Albumin/Globulin Ratio Procalcitonin TSH Urine Color Urine Appearance Urine pH Ur Specific Kathleen Urine Protein Urine Glucose (UA) Urine Ketones Urine Blood Urine Nitrite Urine Bilirubin Urine Urobilinogen Ur Leukocyte Esterase Urine WBC (Auto) Urine RBC (Auto) U Hyaline Cast (Auto) U Epithel Cells (Auto) Urine Bacteria (Auto) Urine Comment Adenovirus (PCR) Anaplasma Smear A. phagocytophilum DNA Babesia Smear Babesia microti DNA PCR B. pertussis DNA (PCR) B.parapertussis DNA PCR Lyme Disease Screen C. pneumoniae DNA (PCR) Coronavirus OC43 (PCR) Coronavirus HKU1 (PCR) Coronavirus 229E (PCR) SARS-CoV-2 (PCR) Coronavirus NL63 (PCR) Human Metapneumovir PCR Influenza Type A (PCR) Influenza Type B (PCR) M. pneumoniae (PCR) Parainfluenza 1 (PCR) Parainfluenza 2 (PCR) Parainfluenza 3 (PCR) Parainfluenza 4 (PCR) RSV (PCR) Entero/Rhino (PCR) Staphylococcus sp PCR mecA/C-Methicil Resis Gene Staph epidermidis (PCR) Group A Strep (PCR) Bld Cult ID Panel PCR 04/22/25 04/23/25 04/23/25 Unknown 00:04 00:27 WBC RBC Hgb Hct MCV MCH MCHC RDW Std Deviation RDW Coeff of Ronny Plt Count MPV Immature Gran % (Auto) Neut % (Auto) Lymph % (Auto) [place] % (Auto) Eos % (Auto) Baso % (Auto) Neut # (Auto) Lymph # (Auto) [place] # (Auto) Eos # (Auto) Baso # (Auto) Immature Gran # (Auto) VBG pH VBG pCO2 VBG pO2 VBG HCO3 VBG O2 Saturation VBG Base Excess Sodium Potassium Chloride Carbon Dioxide Anion Gap BUN Creatinine Est Cr Clr Drug Dosing eGFR BUN/Creatinine Ratio Glucose POC Glucose 62 L* 76 Estimat Average Glucose Hemoglobin A1c Lactate Calcium Magnesium Total Bilirubin AST ALT Alkaline Phosphatase Total Creatine Kinase Total Protein Albumin Globulin Albumin/Globulin Ratio Procalcitonin TSH Urine Color Yellow Urine Appearance Clear Urine pH 6.5 Ur Specific Kathleen 1.008 Urine Protein 1+ H Urine Glucose (UA) Negative Urine Ketones Negative Urine Blood 3+ H Urine Nitrite Negative Urine Bilirubin Negative Urine Urobilinogen Negative Ur Leukocyte Esterase Negative Urine WBC (Auto) 0-5 Urine RBC (Auto) 0-2 U Hyaline Cast (Auto) 0-2 U Epithel Cells (Auto) 0-2 Urine Bacteria (Auto) None Seen Urine Comment Adenovirus (PCR) Anaplasma Smear A. phagocytophilum DNA Babesia Smear Babesia microti DNA PCR B. pertussis DNA (PCR) B.parapertussis DNA PCR Lyme Disease Screen C. pneumoniae DNA (PCR) Coronavirus OC43 (PCR) Coronavirus HKU1 (PCR) Coronavirus 229E (PCR) SARS-CoV-2 (PCR) Coronavirus NL63 (PCR) Human Metapneumovir PCR Influenza Type A (PCR) Influenza Type B (PCR) M. pneumoniae (PCR) Parainfluenza 1 (PCR) Parainfluenza 2 (PCR) Parainfluenza 3 (PCR) Parainfluenza 4 (PCR) RSV (PCR) Entero/Rhino (PCR) Staphylococcus sp PCR mecA/C-Methicil Resis Gene Staph epidermidis (PCR) Group A Strep (PCR) Bld Cult ID Panel PCR 04/23/25 04/23/25 04/23/25 04:45 04:47 05:11 WBC RBC Hgb Hct MCV MCH MCHC RDW Std Deviation RDW Coeff of Ronny Plt Count MPV Immature Gran % (Auto) Neut % (Auto) Lymph % (Auto) [place] % (Auto) Eos % (Auto) Baso % (Auto) Neut # (Auto) Lymph # (Auto) [place] # (Auto) Eos # (Auto) Baso # (Auto) Immature Gran # (Auto) VBG pH VBG pCO2 VBG pO2 VBG HCO3 VBG O2 Saturation VBG Base Excess Sodium Potassium Chloride Carbon Dioxide Anion Gap BUN Creatinine Est Cr Clr Drug Dosing eGFR BUN/Creatinine Ratio Glucose POC Glucose 49 L* 45 L* 57 L* Estimat Average Glucose Hemoglobin A1c Lactate Calcium Magnesium Total Bilirubin AST ALT Alkaline Phosphatase Total Creatine Kinase Total Protein Albumin Globulin Albumin/Globulin Ratio Procalcitonin TSH Urine Color Urine Appearance Urine pH Ur Specific Kathleen Urine Protein Urine Glucose (UA) Urine Ketones Urine Blood Urine Nitrite Urine Bilirubin Urine Urobilinogen Ur Leukocyte Esterase Urine WBC (Auto) Urine RBC (Auto) U Hyaline Cast (Auto) U Epithel Cells (Auto) Urine Bacteria (Auto) Urine Comment Adenovirus (PCR) Anaplasma Smear A. phagocytophilum DNA Babesia Smear Babesia microti DNA PCR B. pertussis DNA (PCR) B.parapertussis DNA PCR Lyme Disease Screen C. pneumoniae DNA (PCR) Coronavirus OC43 (PCR) Coronavirus HKU1 (PCR) Coronavirus 229E (PCR) SARS-CoV-2 (PCR) Coronavirus NL63 (PCR) Human Metapneumovir PCR Influenza Type A (PCR) Influenza Type B (PCR) M. pneumoniae (PCR) Parainfluenza 1 (PCR) Parainfluenza 2 (PCR) Parainfluenza 3 (PCR) Parainfluenza 4 (PCR) RSV (PCR) Entero/Rhino (PCR) Staphylococcus sp PCR mecA/C-Methicil Resis Gene Staph epidermidis (PCR) Group A Strep (PCR) Bld Cult ID Panel PCR 04/23/25 04/23/25 04/23/25 05:32 06:38 08:15 WBC 4.47 L RBC 3.79 L Hgb 11.8 L Hct 34.4 L MCV 90.8 MCH 31.1 MCHC 34.3 RDW Std Deviation 43.6 RDW Coeff of Ronny 13.1 Plt Count 157 MPV 9.7 Immature Gran % (Auto) 0.7 Neut % (Auto) 67.4 Lymph % (Auto) 14.5 [place] % (Auto) 14.5 Eos % (Auto) 2.2 Baso % (Auto) 0.7 Neut # (Auto) 3.01 Lymph # (Auto) 0.65 L [place] # (Auto) 0.65 H Eos # (Auto) 0.10 Baso # (Auto) 0.03 Immature Gran # (Auto) 0.03 VBG pH VBG pCO2 VBG pO2 VBG HCO3 VBG O2 Saturation VBG Base Excess Sodium 141 Potassium 4.9 Chloride 115 H Carbon Dioxide 21 Anion Gap 5 BUN 62 H Creatinine 6.40 H* D Est Cr Clr Drug Dosing 11.4 eGFR 8.51 BUN/Creatinine Ratio 9.7 L Glucose 80 POC Glucose 99 57 L* Estimat Average Glucose 166 Hemoglobin A1c 7.4 H Lactate Calcium 7.1 L Magnesium 1.9 Total Bilirubin 0.3 AST 161 H ALT 292 H Alkaline Phosphatase 56 Total Creatine Kinase 3260 H Total Protein 5.3 L Albumin 2.7 L Globulin 2.6 Albumin/Globulin Ratio 1.0 Procalcitonin TSH Urine Color Urine Appearance Urine pH Ur Specific Kathleen Urine Protein Urine Glucose (UA) Urine Ketones Urine Blood Urine Nitrite Urine Bilirubin Urine Urobilinogen Ur Leukocyte Esterase Urine WBC (Auto) Urine RBC (Auto) U Hyaline Cast (Auto) U Epithel Cells (Auto) Urine Bacteria (Auto) Urine Comment Adenovirus (PCR) Anaplasma Smear A. phagocytophilum DNA Babesia Smear Babesia microti DNA PCR B. pertussis DNA (PCR) B.parapertussis DNA PCR Lyme Disease Screen C. pneumoniae DNA (PCR) Coronavirus OC43 (PCR) Coronavirus HKU1 (PCR) Coronavirus 229E (PCR) SARS-CoV-2 (PCR) Coronavirus NL63 (PCR) Human Metapneumovir PCR Influenza Type A (PCR) Influenza Type B (PCR) M. pneumoniae (PCR) Parainfluenza 1 (PCR) Parainfluenza 2 (PCR) Parainfluenza 3 (PCR) Parainfluenza 4 (PCR) RSV (PCR) Entero/Rhino (PCR) Staphylococcus sp PCR mecA/C-Methicil Resis Gene Staph epidermidis (PCR) Group A Strep (PCR) Bld Cult ID Panel PCR 04/23/25 04/23/25 08:15 09:04 WBC RBC Hgb Hct MCV MCH MCHC RDW Std Deviation RDW Coeff of Ronny Plt Count MPV Immature Gran % (Auto) Neut % (Auto) Lymph % (Auto) [place] % (Auto) Eos % (Auto) Baso % (Auto) Neut # (Auto) Lymph # (Auto) [place] # (Auto) Eos # (Auto) Baso # (Auto) Immature Gran # (Auto) VBG pH VBG pCO2 VBG pO2 VBG HCO3 VBG O2 Saturation VBG Base Excess Sodium Potassium Chloride Carbon Dioxide Anion Gap BUN Creatinine Est Cr Clr Drug Dosing eGFR BUN/Creatinine Ratio Glucose POC Glucose 60 L* 106 H Estimat Average Glucose Hemoglobin A1c Lactate Calcium Magnesium Total Bilirubin AST ALT Alkaline Phosphatase Total Creatine Kinase Total Protein Albumin Globulin Albumin/Globulin Ratio Procalcitonin TSH Urine Color Urine Appearance Urine pH Ur Specific Kathleen Urine Protein Urine Glucose (UA) Urine Ketones Urine Blood Urine Nitrite Urine Bilirubin Urine Urobilinogen Ur Leukocyte Esterase Urine WBC (Auto) Urine RBC (Auto) U Hyaline Cast (Auto) U Epithel Cells (Auto) Urine Bacteria (Auto) Urine Comment Adenovirus (PCR) Anaplasma Smear A. phagocytophilum DNA Babesia Smear Babesia microti DNA PCR B. pertussis DNA (PCR) B.parapertussis DNA PCR Lyme Disease Screen C. pneumoniae DNA (PCR) Coronavirus OC43 (PCR) Coronavirus HKU1 (PCR) Coronavirus 229E (PCR) SARS-CoV-2 (PCR) Coronavirus NL63 (PCR) Human Metapneumovir PCR Influenza Type A (PCR) Influenza Type B (PCR) M. pneumoniae (PCR) Parainfluenza 1 (PCR) Parainfluenza 2 (PCR) Parainfluenza 3 (PCR) Parainfluenza 4 (PCR) RSV (PCR) Entero/Rhino (PCR) Staphylococcus sp PCR mecA/C-Methicil Resis Gene Staph epidermidis (PCR) Group A Strep (PCR) Bld Cult ID Panel PCR PG Care Time/CCT Total # of Minutes Spent Total Time Spent with Patient: Total time spent is greater than 50% in coordination of care (as documented) at patient's floor/unit and/or counseling patient: Coding Level of Care Code 22516 SUB INP/OBS CARE 3/50MIN Diagnoses MARI (acute kidney injury) N17.9 Chronic kidney disease N18.9 Rhabdomyolysis M62.82 Parainfluenza virus infection B34.8 Type II diabetes mellitus E11.9 Coronary artery disease I25.10 Dyslipidemia E78.5 Abdominal aortic aneurysm I71.4
[2025-04-23] MEDS: D5W AND NSS 1,000 ML IV SCH (11:47)
[2025-04-23] MEDS: COUGH DROP (SUGAR FREE) LOZ 24 LOZ/1 BOX BUCCAL PRN (11:52)
--- NOTE | 2025-04-23 12:02 | XRay Report ---
XR chest 1V portable CLINICAL HISTORY: wheezing COMPARISON STUDY: 02/01/2011 FINDINGS: There is mild cardiomegaly without pulmonary vascular congestion. No consolidation or pleur al effusion. No pneumothorax. IMPRESSION: No pneumonia seen. ACT 112: Negative or not required by law. Electronically signed by: Davie Winters M.D. 04/23/2025 12:01 PM
--- NOTE | 2025-04-23 15:06 | Hospitalist Progress Note ---
Date of Service April 23, 2025 Assessment & Plan (1) Parainfluenza virus infection: (2) Rhabdomyolysis: (3) Hypoglycemia: (4) Acute kidney injury superimposed on CKD: Plan Jonathan Salazar is a 74-year-old male with a history of CAD s/p MACKENZIE, AAA s/p repair, PAD, HTN, DM 2, mild aortic stenosis, HLD, and CKD stage III, who presents to the ED with worsening confusion and low blood sugar after having 6 days of myalgias, sore throat, loss of taste and smell, and night sweats. He became hypoglycemic with a blood sugar of 37 at home by EMS and in the ED, he was found to have a creatinine elevated at 8.68, acidosis with VBG pH of 7.28, with normal lactate and no anion gap, normal serum bicarbonate, elevated AST and ALT and found to have a elevated CK of 4909. His COVID/flu/RSV test was negative, however respiratory biofire was positive for parainfluenza virus. Strep PCR negative. He is admitted for hypoglycemia, and acute kidney injury secondary to parainfluenza induced rhabdomyolysis. #Parainfluenza/rhabdomyolysis - presented with sore throat, severe diffuse myalgias, sweats but no documented fevers, and with rhabdomyolysis. While influenza induced rhabdomyolysis is more common, there rarely can be parainfluenza induced rhabdomyolysis. He is on a statin drug but has been on it for years and I do not think this is the cause. He did not have a strenuous workout more than his usual amount of activity and there were no other new supplements or medications that he has been taking. CK elevated at 4909 on admission and AST and ALT elevated as well secondary to rhabdomyolysis. With acute kidney injury resulting. UA with 3+ blood and 0 RBCs consistent with myoglobinuria - CK downtrending this morning - 4909 -> 3260. - AST & ALT also downtrending ; AST 213 -> 161 ; ALT 354 -> 292. - switched IV fluids to D5 NS 100 mL/h and have been continuing to monitor for volume overload given - Admit to medical floor with telemetry for arrhythmia monitoring - Isolation precautions for parainfluenza - Supportive care, Tylenol as needed for headache, sore throat, pain, or fever - Blood cultures ordered growing Gram positive cocci/Staph epi and Gram positive bacilli - likely contamination. Will repeat blood cultures today. Continue to monitor for signs of infection including fever, tachycardia, leukocytosis. - Continue IV fluids with normal saline at 125 mL/h and monitor for volume overload given history of cardiac issues although has normal EF. Having some reported wheezing this morning; wheezing present on auscultation in all 4 lung field; CXR ordered and showing mild cardiomegaly without pulmonary vascular congestion. No consolidation or pleural effusion. No pneumothorax. No pneumonia seen. Albuterol neb ordered. - repeat BMP and VBG ordered for 1500. Will continue to monitor electrolytes - nonactionable this morning. - Trend serial CK, CMP - Hold home statin and Zetia - Loose stools and nausea could be from renal failure or parainfluenza but will check stool cultures/C. difficile as well #Acute kidney injury on CKD stage III/nonanion gap metabolic acidosis - creatinine 8.6 on admission with BUN 81 with anion gap metabolic acidosis normal lactate. pH is low at 7.27 which corrected for venous approximately 7.29 with normal CO2 likely secondary to acute kidney injury. MARI also secondary to rhabdomyolysis. UA with myoglobinuria and 1+ protein but otherwise bland, no evidence of infection. Fortunately, he is making urine and does not have any hyperkalemia or volume overload. - repeat VBG showing pH low and unchanged at 7.27 with normal CO2. - creatinine improving this morning 8.6 -> 6.40 -> 5.86. Patient remains w/o hyperkalemia or volume overload. - continue IVF D5 NS 100 mL/hr - serial BMP - nephrology consulted and appreciate recommendations - strict I&O monitoring - hold home lisinopril, metformin, glimepiride #Hypoglycemia/DM 2 - blood sugar of 37 at the time of EMS arrival at his home improved with dextr ose, however dropped back down again in the ED to in the 40s. Suspect glimepiride is the cause in the setting of acute kidney injury. Typically he takes metformin and glimepiride for his diabetes and is well-controlled with an HgbA1c of 7.7%. Repeat HbA1c on admission 7.4% which is at goal of <8% - switched D10W drip to D5 NS - continue POC glucose q4h - Will order loose NovoLog sliding scale in case develops hyperglycemia as renal function improves - Diabetic diet #bacteremia - checked blood cultures on admission. Initial cultures growing staph epi and Gram positive bacilli - likely contamination, however will plan to repeat blood cultures today to confirm - patient w/o fever or leukocytosis this morning - continue to monitor for signs of infection #CAD s/p MACKENZIE/AAA s/p repair/PAD/HTN/mild aortic stenosis/HLD/elevated troponin - minimally elevated troponin in the 20s and repeat stable likely secondary to acute kidney injury. He has no chest pain, no ECG ischemic changes. He follows with [facility] cardiology and has no acute issues at this time - Continue home aspirin, metoprolol - Holding home lisinopril, rosuvastatin, Zetia for MARI and rhabdomyolysis DVT prophylaxis-heparin SQ only-defer SCDs due to rhabdomyolysis of the legs Disposition-admit to medical floor with telemetry Admission and Anticipated Discharge Date Admission Date: April 22, 2025 Supervising Physician Co-Signing Physician Notes I personally examined the patient and verified all rai points of history and exam, discussed case, and agree with decision making with Dr. Herring with the following additions/exceptions: S-Pt feeling much better, less pain in legs. Denies SOB but has a slight cough. He is making urine. No other complaints. I discussed his care with Nephrology O- Vitals Reviewed Gen: [AAOx3, NAD] HEENT: [anicteric sclerae] CV: [RRR no mgr nl S1S2] Pulm: [CTAB no wcr] Abd: [+BS soft NT ND no masses or hernias] Ext: [no edema] Skin: [no rashes, warm/dry] Neuro: [full strength throughout] CBC, BMPs, LFTs, CK reviewed A/P: 74 yo male here with parainfluenza-induced rhabdomyolysis, MARI, and hypoglycemia. Now developing hyperkalemia. -continue dextrose with NS for rhabdo and hypoglycemia, juice and D50 as needed -follow CMP, CK -follow UOP -CXR neg for pulm edema-giving albuterol for wheezing and may have bronchitis from parainfluenza-will also help hyperkalemia -give IV calcium, lokelma, low potassium diet, and will d/w Nephro about starting NaHCO3 gtt Subjective Patient seen and examined at bedside this morning. Alert and resting comfortably in bed. Responding appropriately. No acute distress. No overnight concerns. Reporting some new onset wheezing this morning without shortness of breath or dyspnea. Has been ambulating, voiding, and moving bowels without concern. Tolerating diet w/o N/V/abdominal pain. Denies chest pain, palpitations, or tightness. Review of Systems Review of Systems: All systems reviewed & are unremarkable except as noted in HPI & below Physical Exam Constitutional: WD/WN, vitals as above Respiratory: normal respiratory effort and + cough; no respiratory distress, no labored breathing and does not use accessory muscles Auscultation: no wheezes Cardiovascular: RRR, no murmur, no edema Gastrointestinal (Abdomen): normal bowel sounds, soft, nontender, no hepatosplenomegaly Musculoskeletal: Extremities: extremities normal to inspection Skin: no rashes, warm and dry Neurologic: no focal neurological deficits Psychiatric: A+Ox3, euthymic affect Results & Data Results & Data Vital Signs (Past 12 Hours) Vital Signs Temp Pulse Pulse Resp BP Pulse Ox Pulse Ox 04/23/25 13:37 95 04/23/25 13:04 65 04/23/25 12:00 36.6 C 65 19 126/75 95 04/23/25 10:10 04/23/25 08:11 36.6 C 70 19 138/71 95 04/23/25 06:04 62 O2 Del Method O2 Del Method 04/23/25 13:37 Room Air 04/23/25 13:04 04/23/25 12:00 Room Air 04/23/25 10:10 Room Air 04/23/25 08:11 Room Air 04/23/25 06:04
[2025-04-23 15:13] LABS: Base Excess VBG -7.0 mEq/L; HCO3 VBG 20 mmol/L; Oxygen Saturation VBG 69.8 %; PCO2 VBG 43 mmHg (38-50); PO2 VBG 36 mmHg; pH VBG 7.27 (7.36-7.41)
[2025-04-23 15:50] LABS: Anion Gap 8.0 (3-11); Blood Urea Nitrogen 58.0 mg/dl (6-23); Calcium 7.7 mg/dl (8.6-10.3); Carbon Dioxide 20.0 mmol/L (21-32); Chloride 114.0 mmol/L (98-107); Creatinine Clr Calc Pharmacy 12.5 ml/min; Glucose 50.0 mg/dl (70-99(Fasting)); Potassium 5.0 mmol/L (3.5-5.1); Sodium 142.0 mmol/L (136-145)
[2025-04-23 16:14] LABS: Cdiff Toxin B Gene (2yr or >) Negative Cdiff Gene (Neg)
[2025-04-23 16:46] LABS: Adenovirus F 40/41 PCR Not Detected (NotDetected); Campylobacter PCR Not Detected (NotDetected); Enteroaggregative E.coli(EAEC) Not Detected (NotDetected); Shiga-like Toxin E.coli (STEC) Not Detected (NotDetected); Vibrio species PCR Not Detected (NotDetected)
[2025-04-23 16:56] LABS: Anion Gap 3.0 (3-11); Blood Urea Nitrogen 57.0 mg/dl (6-23); Calcium 7.5 mg/dl (8.6-10.3); Carbon Dioxide 23.0 mmol/L (21-32); Chloride 114.0 mmol/L (98-107); Creatinine Clr Calc Pharmacy 12.8 ml/min; Glucose 51.0 mg/dl (70-99(Fasting)); Potassium 5.3 mmol/L (3.5-5.1); Sodium 140.0 mmol/L (136-145)
[2025-04-23] MEDS ORDERED: Nursing to Pharmacy Communication SCH (17:15)
[2025-04-23] MEDS: SODIUM ZIRCONIUM CYCLOSILICATE 10 GM PACKET PO STA (17:25)
--- NOTE | 2025-04-23 17:30 | Billing Data ---
Date of Service April 23, 2025 Coding Level of Care Code 35186 SUB INP/OBS CARE MIN
[2025-04-23] MEDS ORDERED: STAT IV/IM STA (17:33)
[2025-04-23] MEDS: CALCIUM GLUCONATE 1,000 MG/60 ML BAG IV STA ×2 (17:54→17:57)
[2025-04-23] MEDS: SODIUM ZIRCONIUM CYCLOSILICATE 10 GM PACKET PO ONE (17:54)
[2025-04-23] MEDS: SODIUM BICARBONATE 8.4% 75 MEQ in SODIUM CHLORIDE 0.45 % 1,000 ML IV SCH (17:59)
[2025-04-23] MEDS: ALBUTEROL 0.5% NEB SOLN 2.5 MG/0.5 ML VIAL NEB STA (18:21)
[2025-04-23 21:16] LABS: Anion Gap 7.0 (3-11); Blood Urea Nitrogen 55.0 mg/dl (6-23); Calcium 7.8 mg/dl (8.6-10.3); Carbon Dioxide 20.0 mmol/L (21-32); Chloride 114.0 mmol/L (98-107); Creatinine Clr Calc Pharmacy 13.7 ml/min; Glucose 79.0 mg/dl (70-99(Fasting)); Potassium 5.0 mmol/L (3.5-5.1); Sodium 141.0 mmol/L (136-145)
[2025-04-24] MEDS: BENZONATATE 100 MG CAPSULE PO PRN (04:07)
[2025-04-24 06:37] LABS: Hematocrit (blood only) 33.8 % (42.0-52.0); Hemoglobin 11.7 g/dl (14.0-18.0); Mean Corpuscular Hemoglobin 31.0 pg (25.0-34.0); Mean Corpuscular Volume 89.4 fL (80.0-100.0); Platelet Count 165 K/uL (130-400); RDW Standard Deviation 43.1 fL (36.4-46.3); Red Blood Count 3.78 M/uL (4.70-6.10); White Blood Count 4.50 K/ul (4.8-10.8)
--- NOTE | 2025-04-24 07:04 | Electrocardiogram Report ---
Test Reason : Blood Pressure : */* mmHG Vent. Rate : 70 BPM Atrial Rate : 70 BPM P-R Int : 166 ms QRS Dur : 82 ms QT Int : 408 ms P-R-T Axes : 71 22 59 degrees QTcB Int : 440 ms Normal sinus rhythm Normal ECG When compared with ECG of 02-Feb-2011 15:51, Nonspecific T wave abnormality no longer evident in Inferior leads Confirmed by Johnathan Jorgensen ([id number] on 04/24/2025 7:04:32 AM Referred By: REFERRED SELF Confirmed By: Johnathan Jorgensen
[2025-04-24 07:29] LABS: Alanine Aminotransferase 236.0 U/L (7-52); Albumin Globulin Ratio 1.1 (0.9-2); Alkaline Phosphatase 59.0 U/L (34-104); Anion Gap 6.0 (3-11); Bilirubin,Total 0.3 mg/dl (0.2-1.0); Blood Urea Nitrogen 46.0 mg/dl (6-23); Calcium 7.4 mg/dl (8.6-10.3); Carbon Dioxide 23.0 mmol/L (21-32); Chloride 115.0 mmol/L (98-107); Creatinine Clr Calc Pharmacy 15.2 ml/min; Globulin 2.6 gm/dl (2.5-4.0); Glucose 85.0 mg/dl (70-99(Fasting)); Potassium 4.7 mmol/L (3.5-5.1); Sodium 144.0 mmol/L (136-145); Total Protein 5.5 gm/dl (6.0-8.3)
[2025-04-24 07:36] LABS: Creatine Kinase 2399.0 U/L (30-223)
[2025-04-24] MEDS: ALBUTEROL 0.5% NEB SOLN 2.5 MG/0.5 ML VIAL NEB STA (07:42)
--- NOTE | 2025-04-24 11:02 | Nephrology Progress Note ---
Date of Service April 24, 2025 Assessment & Plan (1) Acute kidney injury superimposed on CKD: (2) Parainfluenza virus infection: (3) HTN (hypertension), benign: (4) Rhabdomyolysis: Plan 74 yo male with stage IIIa CKD baseline creatinine 1.3-1.4 mg/dl admitted to the hospital with 1 week history of generalized weakness vomiting, diarrhea. Labs on admission showed MARI, creatinine was 8.6 and CPK was 5000. Workup also revealed parainfluenza. Rhabdomyolysis was thought to be related to parainfluenza virus infection. Urinalysis with no significant proteinuria. CT abdomen pelvis negative for postrenal obstruction. --Since CPK is still quite elevated, creatinine still close to 5, recommend holding discharge until further improvement in CPK and kidney function. --Continue to monitor kidney function and electrolyte. --Encourage increase p.o. intake. --Continue to hold statin, lisinopril, metformin. Admission and Anticipated Discharge Date Admission Date: April 22, 2025 Fanny Castillo was seen and evaluated this morning. He reports overall feeling much better and eager to go home. Blood pressure stable. Denies shortness of holden th. Voiding normally. Kidney function continue to improve, creatinine down to 4.7. CPK is still elevated around 2800, on IV fluid. Review of Systems Review of Systems: All systems reviewed & are unremarkable except as noted in Subjective Physical Exam Constitutional: WD/WN, vitals as above no acute distress Eyes: + anicteric sclerae Neck: normal visual inspection Respiratory: Auscultation: lungs clear to auscultation bilaterally Cardiovascular: RRR, no murmur, no edema Skin: normal turgor; no rashes Neurologic: no focal motor deficits Psychiatric: Orientation: alert and oriented x 3 Results & Data Vital Signs (Past 12 Hours) Vital Signs Temp Pulse Pulse Resp BP Pulse Ox O2 Del Method 04/24/25 08:41 Room Air 04/24/25 08:25 37.1 C 67 20 129/71 96 Room Air 04/24/25 05:45 75 04/24/25 02:40 37.5 C 79 17 107/61 96 Room Air 04/23/25 23:06 37.3 C 74 17 126/67 95 Room Air PG Care Time/CCT Total # of Minutes Spent Total Time Spent with Patient: Total time spent is greater than 50% in coordination of care (as documented) at patient's floor/unit and/or counseling patient: Coding Level of Care Code 14771 SUB INP/OBS CARE 2/35MIN Diagnoses Acute kidney injury superimposed on CKD N17.9; N18.9 Parainfluenza virus infection B34.8 HTN (hypertension), benign I10 Rhabdomyolysis M62.82
--- NOTE | 2025-04-24 11:03 | Hospitalist Progress Note ---
Date of Service April 24, 2025 Assessment & Plan (1) Parainfluenza virus infection: (2) Acute kidney injury superimposed on CKD: (3) Rhabdomyolysis: (4) Hypoglycemia: Plan Jonathan Salazar is a 74-year-old male with a history of CAD s/p MACKENZIE, AAA s/p repair, PAD, HTN, DM 2, mild aortic stenosis, HLD, and CKD stage III, who presents to the ED with worsening confusion and low blood sugar after having 6 days of myalgias, sore throat, loss of taste and smell, and night sweats. He became hypoglycemic with a blood sugar of 37 at home by EMS and in the ED, he was found to have a creatinine elevated at 8.68, acidosis with VBG pH of 7.28, with normal lactate and no anion gap, normal serum bicarbonate, elevated AST and ALT and found to have a elevated CK of 4909. His COVID/flu/RSV test was negative, however respiratory biofire was positive for parainfluenza virus. Strep PCR negative. He is admitted for hypoglycemia, and acute kidney injury secondary to parainfluenza induced rhabdomyolysis. #Parainfluenza/rhabdomyolysis - presented with sore throat, severe diffuse myalgias, sweats but no documented fevers, and with rhabdomyolysis. While influenza induced rhabdomyolysis is more common, there rarely can be parainfluenza induced rhabdomyolysis. He is on a statin drug but has been on it for years and I do not think this is the cause. He did not have a strenuous workout more than his usual amount of activity and there were no other new supplements or medications that he has been taking. CK elevated at 4909 on admission and AST and ALT elevated as well secondary to rhabdomyolysis. With acute kidney injury resulting. UA with 3+ blood and 0 RBCs consistent with myoglobinuria - CK downtrending this morning - 4909 -> 3260 -> 2399 - AST & ALT also downtrending ; AST 213 -> 161 -> 114; ALT 354 -> 292 -> 236 - switched IV fluids to D5 NS 100 mL/h and have been continuing to monitor for volume overload; - Admit to medical floor with telemetry for arrhythmia monitoring - Isolation precautions for parainfluenza - Supportive care, Tylenol as needed for headache, sore throat, pain, or fever - Blood cultures ordered growing Gram positive cocci/Staph epi and Gram positive bacilli - likely contamination. Will repeat blood cultures today. Continue to monitor for signs of infection including fever, tachycardia, leukocytosis. - Continue IV fluids with normal saline at 125 mL/h and monitor for volume overload given history of cardiac issues although has normal EF. Wheezing from yesterday has improved - given albuterol nebs x2. Lungs CTA BL on exam this morning. CXR completed yesterday (04/23) showing mild cardiomegaly without pulmonary vascular congestion. No consolidation or pleural effusion. No pneumothorax. No pneumonia seen. - Trend serial CK, CMP - Hold home statin and Zetia - Loose stools and nausea could be from renal failure or parainfluenza as stool cultures/C. difficile both negative #Acute kidney injury on CKD stage III/nonanion gap metabolic acidosis/hyperkalemia - creatinine 8.6 on admission with BUN 81 with anion gap metabolic acidosis normal lactate. pH is low at 7.27 which corrected for venous approximately 7.29 with normal CO2 likely secondary to acute kidney injury. MARI also secondary to rhabdomyolysis. UA with myoglobinuria and 1+ protein but otherwise bland, no evidence of infection. . - repeat VBG showing pH low and unchanged at 7.27 with normal CO2. - creatinine improving this morning 8.6 -> 4.66. Repeat BMP this afternoon Cr 4.25. Because labs and clinical presentation continuing to improve, plan to stop D5W NS in the morning if glucose is well-controlled overnight without hypoglycemic events. - K+ elevated yesterday at 5.2 Treated with Lokelma and calcium gluconate. Improved K+ 4.7 this morning. Remains without hyperkalemia this afternoon (K+ 4.8) - continue IVF D5 NS 100 mL/hr - repeat CMP, VBG, magnesium in AM - nephrology consulted and appreciate recommendations - strict I&O monitoring - hold home lisinopril, metformin, glimepiride #Hypoglycemia/DM 2 - blood sugar of 37 at the time of EMS arrival at his home improved with dextrose, however dropped back down again in the ED to in the 40s. Suspect glimepiride is the cause in the setting of acute kidney injury. Typically he takes metformin and glimepiride for his diabetes and is well-controlled with an HgbA1c of 7.7%. Repeat HbA1c on admission 7.4% which is at goal of <8% - switched D10W drip to D5 NS - continue POC glucose q4h - Continue loose NovoLog sliding scale in case develops hyperglycemia as renal function improves - Diabetic diet #bacteremia - checked blood cultures on admission. Initial cultures growing Staph haemolyticus, Staph capitis, and probably anaerobic gram positive bacilli - all likely contamination. Repeat blood cultures showing no growth after 24 hours. - patient w/o fever or leukocytosis this morning - continue to monitor for signs of infection #normocytic anemia/leukopenia/lymphopenia - patient's H&H wnl at baseline, however has continue to downtrend. WBC 4.50, lymphocytes 0.65 - this is likely a result of patient's parainfluenza infection and inflammation. Plan to follow CBC in the morning. #CAD s/p MACKENZIE/AAA s/p repair/PAD/HTN/mild aortic stenosis/HLD/elevated troponin - minimally elevated troponin in the 20s and repeat stable likely secondary to acute kidney injury. He has no chest pain, no ECG ischemic changes. He follows with [facility] cardiology and has no acute issues at this time. No telemetry events. - Continue home aspirin, metoprolol - Holding home lisinopril, rosuvastatin, Zetia for MARI and rhabdomyolysis DVT prophylaxis-heparin SQ only-defer SCDs due to rhabdomyolysis of the legs Disposition-admit to medical floor with telemetry Admission and Anticipated Discharge Date Admission Date: April 22, 2025 Supervising Physician Co-Signing Physician Notes I personally examined the patient and verified all rai points of history and exam, discussed case, and agree with decision making with Dr. Herring with the following additions/exceptions: S-Feels well, better every day, no further muscle aches, has a mild cough O- Vitals Reviewed Gen: [AAOx3, NAD] HEENT: [anicteric sclerae] CV: [RRR no mgr nl S1S2] Pulm: [CTAB no wcr] Abd: [+BS soft NT ND no masses or hernias] Ext: [no edema] Skin: [no rashes, warm/dry] Neuro: [full strength throughout] CBC, BMPs, LFTs, CK reviewed A/P: 74 yo male here with parainfluenza-induced rhabdomyolysis, MARI, and hypoglycemia. Hyperkalemia resolved -continue dextrose with NS for rhabdo and hypoglycemia, juice and D50 as needed- improving, can likely dc D5 tomorrow -follow CMP, CK -follow UOP -CXR neg for pulm edema- albuterol for wheezing improved and may have bronchitis from parainfluenza-give guaifenesin DM Subjective Patient seen and examined at bedside this morning. Awake and responding appropriately. No acute distress. Had episodes of hypoglycemia overnight, treated with oral carbohydrates and restarted D5W NS. Patient reports feeling well this morning. Endorses bothersome cough without SOB or dyspnea. Also reporting occasional left calf cramp that seems to come on when laying in bed and moving his leg. Tolerating diet w/o N/V/D. Ambulating, voiding, and moving bowels without concern. Denies chest pain, palpitations. Review of Systems Review of Systems: All systems reviewed & are unremarkable except as noted in HPI & below Physical Exam Constitutional: WD/WN, vitals as above Respiratory: normal respiratory effort and + cough; no respiratory distress, no labored breathing and does not use accessory muscles Auscultation: no wheezes Cardiovascular: RRR, no murmur, no edema Gastrointestinal (Abdomen): normal bowel sounds, soft, nontender, no hepatosplenomegaly Musculoskeletal: Extremities: extremities normal to inspection Torin's sign negative No tenderness to palpation, swelling, or erythema of the left calf. Skin: no rashes, warm and dry Neurologic: no focal neurological deficits Psychiatric: A+Ox3, euthymic affect Results & Data Results & Data Vital Signs (Past 12 Hours) Vital Signs Temp Pulse Pulse Resp BP Pulse Ox O2 Del Method 04/24/25 08:41 Room Air 04/24/25 08:25 37.1 C 67 20 129/71 96 Room Air 04/24/25 05:45 75 04/24/25 02:40 37.5 C 79 17 107/61 96 Room Air 04/23/25 23:06 37.3 C 74 17 126/67 95 Room Air
[2025-04-24 14:22] LABS: Anion Gap 6.0 (3-11); Blood Urea Nitrogen 44.0 mg/dl (6-23); Calcium 7.8 mg/dl (8.6-10.3); Carbon Dioxide 24.0 mmol/L (21-32); Chloride 111.0 mmol/L (98-107); Creatinine Clr Calc Pharmacy 16.7 ml/min; Glucose 139.0 mg/dl (70-99(Fasting)); Potassium 4.8 mmol/L (3.5-5.1); Sodium 141.0 mmol/L (136-145)
--- NOTE | 2025-04-24 17:25 | Billing Data ---
Date of Service April 24, 2025 Coding Level of Care Code 27400 SUB INP/OBS CARE
[2025-04-25 06:04] LABS: Base Excess VBG -2.2 mEq/L; HCO3 VBG 23 mmol/L; Oxygen Saturation VBG 85.8 %; PCO2 VBG 41 mmHg (38-50); PO2 VBG 56 mmHg; pH VBG 7.36 (7.36-7.41)
[2025-04-25 06:31] LABS: Hematocrit (blood only) 33.2 % (42.0-52.0); Hemoglobin 10.9 g/dl (14.0-18.0); Immature Granulocytes # (auto) 0.01 K/uL (0.01-0.20); Immature Granulocytes % (auto) 0.2 %; Mean Corpuscular Hemoglobin 29.9 pg (25.0-34.0); Mean Corpuscular Volume 91.0 fL (80.0-100.0); Platelet Count 143 K/uL (130-400); RDW Standard Deviation 44.9 fL (36.4-46.3); Red Blood Count 3.65 M/uL (4.70-6.10); White Blood Count 4.06 K/ul (4.8-10.8)
[2025-04-25 06:47] LABS: Alanine Aminotransferase 172.0 U/L (7-52); Albumin Globulin Ratio 1.1 (0.9-2); Alkaline Phosphatase 54.0 U/L (34-104); Anion Gap 5.0 (3-11); Bilirubin,Total 0.4 mg/dl (0.2-1.0); Blood Urea Nitrogen 36.0 mg/dl (6-23); Calcium 7.5 mg/dl (8.6-10.3); Carbon Dioxide 23.0 mmol/L (21-32); Chloride 117.0 mmol/L (98-107); Creatine Kinase 1318.0 U/L (30-223); Creatinine Clr Calc Pharmacy 18.5 ml/min; Globulin 2.6 gm/dl (2.5-4.0); Glucose 120.0 mg/dl (70-99(Fasting)); Magnesium 1.5 mg/dl (1.7-2.4); Potassium 4.5 mmol/L (3.5-5.1); Sodium 145.0 mmol/L (136-145); Total Protein 5.5 gm/dl (6.0-8.3)
[2025-04-25] MEDS ORDERED: MAGNESIUM SULFATE / D5W 1 GM/100 ML BAG IV SCH (07:15)
[2025-04-25] MEDS: MAGNESIUM SULFATE / D5W 1 GM/100 ML BAG IV SCH (07:44)
--- NOTE | 2025-04-25 10:16 | Nephrology Progress Note ---
Date of Service April 25, 2025 Assessment & Plan (1) Acute kidney injury superimposed on CKD: (2) Parainfluenza virus infection: (3) HTN (hypertension), benign: (4) Rhabdomyolysis: Plan 74 yo male with stage IIIa CKD baseline creatinine 1.3-1.4 mg/dl admitted to the hospital with 1 week history of generalized weakness vomiting, diarrhea. Labs on admission showed MARI, creatinine was 8.6 and CPK was 5000. Workup also revealed parainfluenza. Rhabdomyolysis was thought to be related to parainfluenza virus infection. Urinalysis with no significant proteinuria. CT abdomen pelvis negative for postrenal obstruction. Kidney function continues to improve rapidly, creatinine down to 3.5, CPK 1300. Magnesium slightly low, given magnesium infusion and IV fluid. --Okay to discharge this afternoon with close outpatient monitoring of kidney function and electrolyte. --Encourage increase p.o. intake, advised to avoid all NSAIDs.. --Continue to hold statin, lisinopril, metformin on discharge.. Admission and Anticipated Discharge Date Admission Date: April 22, 2025 Fanny Castillo was seen and examined this morning. He does have some cough and upper airway congestion but overall feeling well, denies shortness of breath or chest pain. No fever or chills. Labs showed progressive improvement in kidney function, creatinine down to 3.5, CPK 1300. Review of Systems Review of Systems: All systems reviewed & are unremarkable except as noted in Subjective Physical Exam Constitutional: WD/WN, vitals as above no acute distress Eyes: + anicteric sclerae Neck: normal visual inspection Respiratory: Auscultation: lungs clear to auscultation bilaterally Cardiovascular: RRR, no murmur, no edema Skin: normal turgor; no rashes Neurologic: no focal motor deficits Psychiatric: Orientation: alert and oriented x 3 Results & Data Vital Signs (Past 12 Hours) Vital Signs Temp Pulse Pulse Resp BP Pulse Ox O2 Del Method 04/25/25 09:49 Room Air 04/25/25 08:01 36.9 C 62 20 152/81 H 97 Room Air 04/25/25 07:08 66 04/25/25 04:00 36.8 C 75 22 150/78 H 96 Room Air 04/25/25 01:19 Room Air 04/25/25 01:16 70 04/24/25 23:00 37.0 C 62 22 122/71 95 Room Air PG Care Time/CCT Total # of Minutes Spent Total Time Spent with Patient: Total time spent is greater than 50% in coordination of care (as documented) at patient's floor/unit and/or counseling patient: Coding Level of Care Code 28455 SUB INP/OBS CARE 2/35MIN Diagnoses Acute kidney injury superimposed on CKD N17.9; N18.9 Parainfluenza virus infection B34.8 HTN (hypertension), benign I10 Rhabdomyolysis M62.82
--- NOTE | 2025-04-25 11:15 | Discharge Summary ---
Date of Service April 25, 2025 Admission HPI Per Admitting Provider This patient is a 74-year-old male with a history of CAD s/p MACKENZIE, AAA s/p repair, PAD, HTN, DM 2, mild aortic stenosis, HLD, and CKD stage III, who presents to the ED with worsening confusion and low blood sugar. Reports about 6 days ago, he started having significant muscle cramps that started in his legs and worked their way up his lower extremities into his back and posterior shoulders. 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 He had a sore throat, loss of taste and smell and says "everything tastes like mud." He denies fevers but woke up a few nights drenched in sweats. He denies cough or shortness of breath or chest pains. His muscle pains continued despite use of topical muscle pain creams. He had some occasional nausea with dry heaves and 2 loose stools and some abdominal cramping. He continued to take all of his usual home medications. On the morning of admission he was confused and his called [id number] noted that his blood sugar was low at 37 and gave him dextrose. By the time of arrival in the ED, his blood sugar was improved to the low 100s and he was found to have a creatinine elevated at 8.68, acidosis with VBG pH of 7.28, with normal lactate and no anion gap, normal serum bicarbonate, elevated AST and ALT and found to have a elevated CK of 4909. His COVID/flu/RSV test was negative, however I ordered a respiratory biofire which was positive for parainfluenza virus. He will be admitted for hypoglycemia, and acute kidney injury secondary to parainfluenza induced rhabdomyolysis. Admission Exam Per Admitting Provider Constitutional: WD/WN, vitals as above Eyes: PERRL, conjunctivae normal, anicteric sclerae ENMT: Mouth: + dry oral mucous membranes; no lip abnormality Mild erythema of posterior oropharynx Neck: trachea midline, no thyromegaly (No tenderness of the neck) Respiratory: normal respiratory effort, lungs clear to auscultation Cardiovascular: RRR, no murmur, no edema Chest (Breasts): Chest: normal inspection of chest Gastrointestinal (Abdomen): normal bowel sounds, soft, nontender, no hepatosplenomegaly Musculoskeletal: Extremities: extremities normal to inspection (No significant tenderness to palpation of all 4 extremities); no cyanosis and no clubbing Skin: no rashes, warm and dry Neurologic: moves all extremities and awake; no focal motor deficits Psychiatric: A+Ox3, euthymic affect Lymphatic: no lymphedema Principal Diagnosis MARI 2/2 rhabdomyolysis due to parainfluenza infection hypoglycemia Discharge Exam Constitutional WD/WN, vitals as above Eyes PERRL, conjunctivae normal, anicteric sclerae Respiratory normal respiratory effort and + cough; no respiratory distress, no labored b reathing and does not use accessory muscles Auscultation: + rhonchi; no wheezes Cardiovascular Rate/Rhythm: regular rate and regular rhythm Extremities: + edema Gastrointestinal (Abdomen) normal bowel sounds, soft, nontender, no hepatosplenomegaly Musculoskeletal Head/Neck/Chest: normocephalic and head atraumatic Extremities: extremities normal to inspection Skin no rashes, warm and dry Neurologic no focal neurological deficits Psychiatric A+Ox3, euthymic affect Discharge Data Allergies Allergy/AdvReac Type Severity Reaction Status Date / Time amoxicillin Allergy Unknown UNKNOWN Verified 01/26/25 09:30 clavulanic acid Allergy Unknown UNKNOWN Verified 01/26/25 09:30 Consultations 04/22/25 10:13 ED Decision to Admit Stat 04/22/25 10:29 Consult Nephrology Routine Ordered Studies 04/22/25 08:16 CT head/brain wo con Stat 04/22/25 08:46 CT Abd and Pelvis [CT abd pelvis wo con] Stat Hospital Course (1) Parainfluenza virus infection: (2) Acute kidney injury superimposed on CKD: (3) Rhabdomyolysis: (4) Hypoglycemia: Karyna Salazar is a 74-year-old male with a history of CAD s/p MACKENZIE, AAA s/p repair, PAD, HTN, DM 2, mild aortic stenosis, HLD, and CKD stage III, who presents to the ED with worsening confusion and low blood sugar after having 6 days of myalgias, sore throat, loss of taste and smell, and night sweats. He became hypoglycemic with a blood sugar of 37 at home by EMS and in the ED, he was found to have a creatinine elevated at 8.68, acidosis with VBG pH of 7.28, with normal lactate and no anion gap, normal serum bicarbonate, elevated AST and ALT and found to have a elevated CK of 4909. His COVID/flu/RSV test was negative, however respiratory biofire was positive for parainfluenza virus. Strep PCR negative. He is admitted for hypoglycemia, and acute kidney injury secondary to parainfluenza induced rhabdomyolysis. #Parainfluenza/rhabdomyolysis - presented with sore throat, severe diffuse myalgias, sweats but no documented fevers, and with rhabdomyolysis. While influenza induced rhabdomyolysis is more common, there rarely can be parainfluenza induced rhabdomyolysis. He is on a statin drug but has been on it for years and I do not think this is the cause. He did not have a strenuous workout more than his usual amount of activity and there were no other new supplements or medications that he has been taking. CK elevated at 4909 on admission and AST and ALT elevated as well secondary to rhabdomyolysis. With acute kidney injury resulting. UA with 3+ blood and 0 RBCs consistent with myoglobinuria - Was managing with D5 NS 100mL/h and continued monitoring for fluid overload due to cardiac issues with normal EF. Patient had an episode of wheezing 04/23/25 noted in all 4 lung mullins and given albuterol nebs x2. CXR completed (04/23) showing mild cardiomegaly without pulmonary vascular congestion. No consolidation or pleural effusion. No pneumothorax. No pneumonia seen. On morning of discharge, patient did have notable rhonchi throughout - albuterol neb was ordered for management. - CK has continued to downtrend during admission. 4909 -> 1318. Patient also had transaminitis on admission which has also been continuing to improve: now AST 72, ALT 172 this morning. - Supportive care for parainfluenza - Tylenol as needed for headache, sore throat, pain, or fever. Also started Robitussin DM as needed for cough and congestion. - Repeat BMP this afternoon. Plan to repeat CBC, CMP, CK, and Mg tomorrow morning outpatient. - Continue holding home statin and Zetia. #Acute kidney injury on CKD stage III/nonanion gap metabolic acidosis/hyperkalemia - creatinine 8.6 on admission with BUN 81 with anion gap metabolic acidosis normal lactate. pH was low at 7.27 which corrected for venous approximately 7.29 with normal CO2 likely secondary to acute kidney injury. MARI also secondary to rhabdomyolysis. UA with myoglobinuria and 1+ protein but otherwise bland, no evidence of infection. - repeat VBG this morning showing resolution of acidosis. pH normalized 7.36 which corrected for venous approximately 7.38 with normal CO2. - creatinine continued to improved during admission, now 3.5 this morning. Because labs and clinical presentation continuing to improve, D5W NS was stopped this morning given glucose levels have stabilized. - K+ elevated during admission. On 04/23 K+ at 5.2 Treated with Lokelma and calcium gluconate. Improved K+ 4.7 following correction and has remained without hyperkalemia. (K+ 4.5 this morning) - plan to repeat CMP, CK, and Mg tomorrow outpatient after discharge. - nephrology consulted and appreciate recommendation. Plan to follow-up with Dr. French within 1-2 weeks after discharge. - hold home lisinopril, metformin, glimepiride on discharge #Hypoglycemia/DM 2 - blood sugar of 37 at the time of EMS arrival at his home improved with dextrose, however dropped back down again in the ED to in the 40s. Suspect glimepiride is the cause in the setting of acute kidney injury. Typically he takes metformin and glimepiride for his diabetes and is well-controlled with an HgbA1c of 7.7%. Repeat HbA1c on admission 7.4% which is at goal of <8% - Patient on D5W NS during admission and glucose levels have stabilized overnight into this morning, therefore fluids have been stopped. - plan to repeat glucose this afternoon before patient levels to ensure stability. - home glimepiride has been stopped given hypoglycemic episodes and MARI. Plan to stop this medication after discharge. - patient also on home metformin for diabetic control. Holding during admission and continue to hold on discharge until cleared by PCP to resume medication. - encourage diabetic diet #bacteremia/lymphopenia/leukopenia - checked blood cultures on admission. Initial cultures growing Staph haemolyticus, Staph capitis, and probably anaerobic gram positive bacilli - all likely contamination. Repeat blood cultures showing no growth after 48 hours. Patient also reported some episodes of loose stools - stool cultures ordered and negative GI panel including C.diff. - patient remained w/o fever or leukocytosis during admission. Recent labs have been notable for leukopenia (WBC 4.05) and lymphopenia (0.78). #normocytic anemia - patient's H&H wnl at baseline, however has continue to downtrend. H&H 10.9 & 33%. This is likely due to volume depletion. Will f/u CBC within 1 week of discharge. #CAD s/p MACKENZIE/AAA s/p repair/PAD/HTN/mild aortic stenosis/HLD/elevated troponin - minimally elevated troponin in the 20s and repeat stable likely secondary to acute kidney injury. He has no chest pain, no ECG ischemic changes. He follows with [facility] cardiology and has no acute issues at this time. No telemetry events overnight requiring action. - Continue home aspirin, metoprolol - Holding home lisinopril, rosuvastatin, Zetia for MARI and rhabdomyolysis DVT prophylaxis-heparin SQ only-defer SCDs due to rhabdomyolysis of the legs ; no need for DVT prophylaxis on admission, just continue home aspirin. Disposition - home today Total Time Total Time Spent Total Time Spent (In Minutes): 45 Total Time Includes: Examination of the Patient, Discharge Planning, Medication Reconciliation and Communication With Other Providers Discharge Plan Discharge Items Patient Disposition: Home - Self-Care Reason For Visit: MARI, RHABDOMYOLYSIS Discharge Diagnosis: acute kidney injury secondary to rhabdomyolysis likely due to parainfluenza infection hypoglycemia Condition on Discharge: Serious Activity: Per Instructions section Non-emergency contact: Primary Care Provider and Digital Strategy Specialist Call non-emergency contact if: you have any medication questions, your symptoms worsen and you have a fever Follow-up/Referrals: Carmelo French MD [Physician] - (Follow-up within 1-2 weeks of discharge- call for an appointment) Cinthya Crawford CRNP [Primary Care Provider] - 05/04/25 11:00 am Diet: Heart Healthy Ambulatory Orders: Complete Blood Count no Diff (Routine) Timeframe: 1 Day Location: Determined by Patient Ordered By: Marylin Herring Creatine Kinase (Routine) Timeframe: 1 Day Location: Determined by Patient Ordered By: Marylin Herring Comprehensive Metabolic Panel (Routine) Timeframe: 1 Day Location: Determined by Patient Ordered By: Marylin Herring Magnesium (Routine) Timeframe: 1 Day Location: Determined by Patient Ordered By: Marylin Herring Addtl Attending Provider Instructions: You were admitted to [facility] for treatment of acute kidney injury caused by rhabdomylosis likely due to your parainfluenza (upper respiratory) infection. You were also found to have very low blood sugar levels. You were treated with IV fluids and oral carbohydrates. You labs and kidney function have been improving since admission. During admission, we also had to replace your potassium and magnesium. We will have you repeat labs tomorrow morning for re- evaluation. The following labs were ordered: CBC, CMP, creatine kinase (CK) and magnesium Please stop taking your home glimepiride because of your low blood sugars. Hold your home atorvastatin, Zetia, lisinopril, and metformin. Please follow-up with your PCP within 1-2 weeks for clearance on when to resume these medications. Follow-up with nephrology - Dr. French - within 1-2 weeks of discharge for repeat evaluation to ensure resolution of symptoms. We have started you on an albuterol inhaler 2 puffs every 4 hours as needed to help with your breathing - this was sent to your pharmacy. You can also take Robitussin DM to help with your cough and congestion, which can be purchased [id number]. There are two blood testing pending at discharge - Anaplasmosis/Babesia, as well as the final read on your blood cultures. Please follow-up with PCP for results. Please continue your blood sugars as well. Pending Studies at Discharge: Yes Studies:: Anaplasmosis/Babesia PCR; final repeat blood cultures Stand-Alone Forms: My [employer], Smoking Cessation Medications and DC Order Prescriptions: New dextromethorphan-guaifenesin [Robitussin Cough-Chest Napoleon DM] 5-100 mg/5 mL Liquid 10 ml PO Q6H PRN (Reason: cough) Qty: 1 0RF Rx Instructions: Over the counter albuterol sulfate 90 mcg/actuation HFA aerosol inhaler 2 inh inhalation Q4H PRN (Reason: shortness of breath or wheezing) Qty: 8.5 0RF Continued (DME) OneTouch Ultra Test Strip See Rx Instructions .Route Qty: 100 3RF Rx Instructions: As directed to test daily (DME) blood-glucose meter [OneTouch Ultra2 Meter] Misc See Rx Instructions .Route Qty: 100 3RF Rx Instructions: As directed to test daily (DME) lancets [OneTouch UltraSoft 2 Lancet] 30 gauge misc See Rx Instructions .Route Qty: 100 0RF Rx Instructions: As directed to test daily metoprolol tartrate 25 mg tablet 25 mg PO BID Qty: 180 3RF aspirin 81 mg tablet 81 mg PO DAILY Patient Comments: Unable to verify OTC meds at this date/time. - 04/22/25 nitroglycerin 0.4 mg tablet, sublingual 0.4 mg SL Q5M PRN (Reason: chest pain) Qty: 25 0RF Held ezetimibe [Zetia] 10 mg tablet 10 mg PO DAILY Qty: 90 3RF rosuvastatin 40 mg tablet 40 mg PO DAILY Qty: 100 3RF lisinopril 10 mg tablet 10 mg PO DAILY Qty: 100 3RF metformin 500 mg tablet 1,000 mg PO BID Qty: 360 3RF Discontinued glimepiride 1 mg tablet 1 mg PO QAM Krames/Other Patient Handouts: Hypoglycemia (Low Blood Sugar), Managing Type 2 Diabetes Admission Data Admit Date/Time: 04/22/25 11:24 Attending Provider: Kisha Grewal Admit Provider: Kisha Grewal Primary Care Provider: Cinthya Crawford Other Providers: Kisha Grewal; Carmelo French Supervising Physician Co-Signing Physician Notes I personally examined the patient and verified all rai points of history and ex am, discussed case, and agree with decision making with Dr. Herring with the following additions/exceptions: S-patient still has a mild cough and occasional wheezing but otherwise feels very well. No muscle aches. No chest pains or shortness of breath, vitals are stable. O- Vitals Reviewed Gen: AAOx3, NAD HEENT: Anicteric sclerae CV: RRR no mgr nl S1S2 Pulm: Mild rhonchi and wheezing bilaterally Abd: +BS soft NT ND no masses or hernias Ext: No edema Skin: No rashes, warm/dry Neuro: Full strength throughout CBC, BMPs, LFTs, CK reviewed A/P: 74 yo male here with parainfluenza-induced rhabdomyolysis, MARI, and hypoglycemia. Hyperkalemia resolved, rhabdomyolysis and acute kidney injury continue to improve daily. He has great urine output and has no further symptoms except for a mild cough and some wheezing from his parainfluenza infection. Hypoglycemia also resolved and dextrose drip has been discontinued -Stable for discharge with close follow-up with labs with CBC, CMP, CK, and ma gnesium on 04/26 - Needs close follow-up with PCP and nephrology - Advised not to overexert himself - Can use albuterol as needed for wheezing, guaifenesin DM OTC for cough - Stable for discharge to home Resident Activity Tracking Resident Involvement: Resident Care Provided Care Provided: Adult Hospital Medicine
[2025-04-25] MEDS: ALBUTEROL 0.5% NEB SOLN 2.5 MG/0.5 ML VIAL NEB STA (11:22)
[2025-04-25 11:26] VITALS: TEMP 97.7
--- NOTE | 2025-04-25 13:18 | Billing Data ---
Date of Service April 25, 2025 Coding Level of Care Code 46559 INP/OBS DISCH >30 MIN Time Spent (min) 35 Comment Time spent in [id number], coordination of care,discussion w/ specialist, review of labs
[2025-04-25 14:37] LABS: Anion Gap 6.0 (3-11); Blood Urea Nitrogen 35.0 mg/dl (6-23); Calcium 7.9 mg/dl (8.6-10.3); Carbon Dioxide 22.0 mmol/L (21-32); Chloride 116.0 mmol/L (98-107); Creatinine Clr Calc Pharmacy 19.3 ml/min; Glucose 127.0 mg/dl (70-99(Fasting)); Potassium 4.4 mmol/L (3.5-5.1); Sodium 144.0 mmol/L (136-145)
[2025-04-25 15:27] VITALS: BP 138/75; PULSE 61; RESP 20; O2SAT 96
== END 2025-04-25 17:15 | disposition home or self-care (01) | DRG 683 ==
LOC: SUATTDRO → ED 07:41 → 2N 11:24